=== PATIENT | male | born 1960 | race Caucasian/White ===

== ENCOUNTER 2024-05-03 07:46 | Inpatient (IN) ==
--- NOTE | 2024-03-29 10:37 | PAT Medication Instructions ---
Medication Instructions Date of Service March 29, 2024 Home Medications aspirin 81 mg capsule 81 mg PO QAM atorvastatin 40 mg tablet 80 mg PO HS clopidogrel 75 mg tablet 75 mg PO QAM escitalopram oxalate 10 mg tablet 10 mg PO HS ASK your prescriber and surgeon aspirin 81 mg capsule 81 mg PO QAM clopidogrel 75 mg tablet 75 mg PO QAM Take evening before surgery atorvastatin 40 mg tablet 80 mg PO HS escitalopram oxalate 10 mg tablet 10 mg PO HS Other Notes NOTHING TO EAT OR DRINK AFTER MIDNIGHT. If you have any questions please call us at [phone] or [phone] or [phone] or [phone]
--- NOTE | 2024-04-04 08:20 | Anesthesiology Consultation ---
Date of Service April 04, 2024 Assessment & Plan (1) Encounter for pre-operative examination: - Infectious disease screening: Per assessment on 04/04/24: No known recent infectious disease contacts or current infectious disease symptoms. - ASA/plavix instructions: per surgeon/prescriber (patient reports at PAT visit that he was advised by surgeon to continue perioperatively) - Cardiology visit (03/09/24): "He has a past medical history significant for coronary artery disease status post PCI of the LAD 97, status post coronary artery bypass grafting with MARIE to LAD, NEREIDA to OM, hypertension hyperlipidemia, postoperative atrial fibrillation with rapid ventricular response which is since resolved.. He has severe claudication.. He underwent a peripheral angiogram which showed severe PAD.. He is scheduled to see Dr. Ruff for FIRE CONTROL TECHNICIAN B endarterectomy. Continue Plavix and ASA.. He is doing well from a cardiac standpoint.. Will continue GDMT for PAD and CAD.. He will see vascular surgery for FIRE CONTROL TECHNICIAN B endarterectomy.. Will plan for LUIS FERNANDO intervention following that.. Will assess PVC burden on next Holter in 6 months.. Follow-up in 1 year" Chart Review Chart Review: Acceptable Risk for Surgery (pending evaluation DOS) and Patient seen in Pre Admission Testing Teaching & Discussion Pre-Anesthesia Teaching/Discussion Notes: Instructed NPO after midnight before surgery,except medications with 15 cc of water. Medication instructions provided according to the PAT guidelines. History Surgery Operation Date: 05/03/24 07:30 Proposed Procedures p Right Common Femoral Artery Endarterectomy - Michelet Ruff MD Height/Weight Height: 5 ft 10.5 in Weight: 124.4 kg Allergies Allergy/AdvReac Type Severity Reaction Status Date / Time No Known Allergies Allergy Verified 03/28/24 08:02 Medications Home Medications Medication Instructions Recorded Confirmed Last Taken aspirin 81 mg capsule 81 mg PO QAM 03/28/24 03/28/24 Unknown atorvastatin 40 mg tablet 80 mg PO HS 03/28/24 03/28/24 Unknown clopidogrel 75 mg tablet 75 mg PO QAM 03/28/24 03/28/24 Unknown escitalopram oxalate 10 mg tablet 10 mg PO HS 03/28/24 03/28/24 Unknown Past Medical History Medical History Anxiety CAD (coronary artery disease) Age 38- stent x1 CABG x2 (11/24/23), PH Wei Follows with Dr. Galindo/NEERAJ Henderson cardio Hx of renal calculi Hyperlipidemia Postoperative atrial fibrillation Sleep apnea CPAP (compliant) Exercise / Class Metabolic Activity III < 4 Walking/Shop/Light housework Past Surgical History Surgical History History of total left knee replacement 2015 History of total right knee replacement 2017 Hx of CABG CABG x2 (11/24/23), PH Wei Hx of cardiac cath Age 38- stent x1 10/2023 > CABG x2 Hx of colonoscopy Hx of lithotripsy Hx of tonsillectomy Hx of umbilical hernia repair [place] teeth extracted Past Anesthesia History No Hx of Anesthesia Complications and No Family Hx of Anesthesia Complications History of PONV No Hx of PONV and No Hx of Motion Sickness Social History Smoking Status: Former smoker Do You Dip or Chew Tobacco: No Smoking End Date: Quit 10/2023 Hx Alcohol Use: Yes Alcohol type: beer alcohol intake frequency: a few times a month substance use type: marijuana (None for at least 25 years) Review of Systems Patient denies chest pain, shortness of breath, dyspnea on exertion, fever, chills, cough, wheezing, palpitations. Physical Exam Vital Signs BP 137/77 P 50 TEMP 97.8 SP02 97%RA RESP 18 Physical Full cervical extension range of motion. Full TMJ range of motion. TMD 3 finger breaths Mallampati Score 3 Dentition: intact, + cap (molar) Lungs: clear throughout to auscultation Cardiac: regular rate and rhythm, no murmurs noted Spine: normal Carotid arteries: negative bruit Extremities: no LE edema Lab Results Anesthesia Preop Results Results Anesthesia Widget: WBC 5.68 K/ul (4.8-10.8) 04/04/24 Hgb 15.0 g/dl (14.0-18.0) 04/04/24 Hct 46.7 % (42.0-52.0) 04/04/24 Plt 191 K/uL (130-400) 04/04/24 Na 140 mmol/L (136-145) 04/04/24 K 4.4 mmol/L (3.5-5.1) 04/04/24 Cl 108 mmol/L (98-107) H 04/04/24 CO2 26 mmol/L (21-32) 04/04/24 BUN 18 mg/dl (6-23) 04/04/24 Creat 0.92 mg/dl (0.6-1.4) 04/04/24 Glucose Level 115 mg/dl (70-99(Fasting)) H 04/04/24 PT 12.0 Seconds (9.0-12.0) 04/04/24 PTT 26 Seconds (21-31) 04/04/24 INR 1.1 (0.9-1.1) 04/04/24 Blood Type A Positive 04/04/24 Antibody Screen NEGATIVE 04/04/24 Testing Electrocardiogram Date: 12/29/23 Sinus bradycardia with second-degree AV block, Mobitz type II. 51 bpm. Nonspecific T wave abnormality. Chest X-Ray Date: 04/04/24 FINDINGS: No pneumothorax. No pleural effusions. The lungs are clear. The cardiac silhouette is top normal in size. There are poststernotomy changes. Degenerative changes within the thoracic spine. IMPRESSION: No acute process. Echocardiogram Date: 11/24/23 EF 45-50%. Although no diagnostic RWMA identified, this possibility cannot be completely excluded on the basis of this study. Mild MR. "At this point in time, the patient is status post cardiopulmonary bypass, during with speech CABG was performed. All echocardiographic findings are the same as or similar to prior to the initiation of cardiopulmonary bypass." Cardiac Catheterization Date: 10/28/23 Severe obstructive CAD of the left main, LAD, left circumflex, RCA. Normal LVEDP. *Subsequent CABG x 2 performed.*
[~2024-05-03 07:46] MED LIST: HEPARIN SOD (PORCINE) 1000 UNIT/ML ONE; PHENYLEPHRINE HCL 25 MG/250 ML NSS IV ONE; PROTAMINE SULFATE 10 MG/ML 5 ML VIAL IV ONE
--- NOTE | 2024-05-03 07:48 | History & Physical Report ---
Date of Service May 03, 2024 Assessment & Plan (1) Occlusion of right femoral artery: Plan: Patient has an occlusion of right common femoral artery occlusion. Endarterectomy was recommended. I have discussed the risks options and benefits of the procedure with the patient. The patient understands the risks options and benefits and agrees to the procedure. History of Present Illness Chief Complaint: Right leg claudication Primary Care Provider: NO PCP I had the pleasure of seeing Jean Pierre today for evaluation of his lower extremities. As you know he is a 64-year-old gentleman who has had open heart surgery recently. He has recovered nicely from that. He gives little long history of lower extremity discomfort. He is only able to walk short distances before he has to stop and rest for 4 to 5 minutes and then move on further. It occurs every time he walks. He describes the discomfort as both pain and a jellylike feeling of his lower legs. It become weak. The weakness does recover also in that 5 minutes span. He has had bilateral knee replacements and is in need of a left hip replacement. He claims his legs do not bother him for a long time of gotten progressively worse. He denies any rest pain in his lower extremities and he denies any tissue loss. He did have arteriography of the low er extremity which showed a right common femoral artery occlusion and a significant narrowing of the left common femoral artery. Allergies Allergy/AdvReac Type Severity Reaction Status Date / Time No Known Allergies Allergy Verified 03/28/24 08:02 Home Medications Medication Instructions Recorded Confirmed Type aspirin 81 mg capsule 81 mg PO QAM 03/28/24 03/28/24 History atorvastatin 40 mg tablet 80 mg PO HS 03/28/24 03/28/24 History clopidogrel 75 mg tablet 75 mg PO QAM 03/28/24 03/28/24 History escitalopram oxalate 10 mg tablet 10 mg PO HS 03/28/24 03/28/24 History Past Med/Surg History Problem List (Updated 05/03/24 @ 07:48 by Michelet Ruff MD) Occlusion of right femoral artery Encounter for pre-operative examination Medical History Postoperative atrial fibrillation CAD (coronary artery disease) Age 38- stent x1 CABG x2 (11/24/23), PH Wei Follows with Dr. Galindo/NEERAJ Henderson cardio Hx of renal calculi Sleep apnea CPAP (compliant) Anxiety Hyperlipidemia Surgical History History of total right knee replacement 2016 History of total left knee replacement 2015 Hx of lithotripsy Hx of umbilical hernia repair Hx of colonoscopy Hx of tonsillectomy [place] teeth extracted Hx of CABG CABG x2 (11/24/23), PH Wei Hx of cardiac cath Age 38- stent x1 10/2023 > CABG x2 Social History Smoking Status: Former smoker Smoking End Date: Quit 10/2023; Second Hand Exposure: No; Do You Dip or Chew Tobacco: No; Tobacco Cessation Education Requested by Patient: No Hx Alcohol Use: Yes Alcohol type: beer Preferred Language: Vietnamese Communication Ability: Effective Magazine Keeper Required: No Beliefs That Will Affect Care: None Current Living Situation: Spouse Other Information That Helps Us Care for You: No Feels Safe at Home: Yes Safety Concerns: Feels Safe At This Time Assistive Devices: CPAP and Glasses Review of Systems All systems reviewed & are unremarkable except as noted in HPI & below Physical Exam Physical Exam: On exam he is awake alert and oriented x 3. He is in no apparent distress. His blood pressure is 156/82 on the left and 160/74 on the right. His radials and carotids are +2 bilaterally. Cannot appreciate any bruits. Lungs are clear heart is regular rhythm and abdomen is benign. I cannot feel aortic pulse due to his body habitus. Femorals are +1 on the left and nonpalpable on the right. I cannot appreciate pedal pulses either foot. His capillary refill is markedly decreased on both sides. There is no tissue loss in either lower extremity.
[2024-05-03] MEDS ORDERED: ONDANSETRON INJ 2 MG/ML 2 ML VIAL IV PRN (10:53)
[2024-05-03] MEDS ORDERED: ePHEDrine sulfate 50 MG/ML AMP IV PRN (10:53)
[2024-05-03] MEDS ORDERED: ATROPINE SULFATE 0.1 MG/ML 10ML SYR IV PRN (10:53)
[2024-05-03] MEDS ORDERED: PROMETHAZINE HCL 6.25 MG in SODIUM CHLORIDE 0.9% 50 ML IV PRN (10:53)
[2024-05-03] MEDS ORDERED: fentaNYL citrate PF 100 MCG/2 ML VIAL IV PRN (10:53)
[2024-05-03] MEDS: LACTATED RINGER'S 1,000 ML BAG IV SCH (10:57)
[2024-05-03] MEDS ORDERED: PROPOFOL IV EMULSION 10 MG/ML 20 ML VIAL IV ONE (10:59)
[2024-05-03] MEDS ORDERED: GLYCOPYRROLATE 0.2 MG/ML VIAL ONE (10:59)
[2024-05-03] MEDS ORDERED: MIDAZOLAM HCL 1 MG/ML 2ML VIAL ONE (10:59)
[2024-05-03] MEDS ORDERED: fentaNYL citrate PF 100 MCG/2 ML VIAL ONE ×3 (10:59→13:58)
[2024-05-03] MEDS ORDERED: ONDANSETRON INJ 2 MG/ML 2 ML VIAL ONE (10:59)
[2024-05-03] MEDS ORDERED: DEXAMETHASONE SOD INJ 4 MG/ML VIAL ONE (10:59)
[2024-05-03] MEDS ORDERED: LIDOCAINE 2% 2 ML VIAL/AMP(20MG/ML) INFIL ONE (10:59)
[2024-05-03] MEDS ORDERED: SUGAMMADEX SODIUM 200 MG/2 ML VIAL IV ONE (11:00)
--- NOTE | 2024-05-03 11:29 | History & Physical Bridge Note ---
Date of Service May 03, 2024 History & Physical Bridge Note I have examined the patient, reviewed the History & Physical and in the interval since the performance of the History & Physical I have noted the following changes of clinical significance: no changes noted
[2024-05-03] MEDS: ceFAZolin 3,000 MG/72.5 ML BAG IV SCH (11:59)
[2024-05-03] MEDS ORDERED: PROTAMINE SULFATE 10 MG/ML 5 ML VIAL IV ONE (12:46)
[2024-05-03] MEDS ORDERED: HEPARIN SOD (PORCINE) 1000 UNIT/ML ONE (12:46)
[2024-05-03] MEDS: ceFAZolin 330 MG/ML 1 GM VIAL ONE (12:47)
[2024-05-03] MEDS: BUPIVACAINE 0.5 % 5 MG/1 ML MPF 30ML VIAL ONE (12:47)
[2024-05-03] MEDS: LIDOCAINE 1% LOCAL 20 ML VIAL ONE (12:47)
[2024-05-03] MEDS: GELATIN SPONGE SZ 100 ONE (14:08)
[2024-05-03] MEDS: THROMBIN FOR SOLN 20000 UNIT KIT ONE (14:09)
[2024-05-03] MEDS: HEPARIN SOD (PORCINE) 5,000 UNITS/ML VIAL ONE (14:10)
[2024-05-03] MEDS: PAPAVERINE HCL INJ 30 MG/ML 2 ML VIAL ONE (14:10)
--- NOTE | 2024-05-03 14:17 | Operative Report ---
Post Operative Report Pre & Post Diagnosis Operation Date: 05/03/24 12:00 Pre-Op Diagnosis: Occlusion of right femoral artery Post-Op Diagnosis: Occlusion of right femoral artery I identified the patient and participated in the time-out.: Yes Procedure Operation Date: 05/03/24 12:00 Actual Procedures p Right Common Femoral Artery Endarterectomy with bovine patch(Not Applicable) - Michelet Ruff MD Surgeon Michelet Ruff MD [employer],PAC Estimated Blood Loss 200 Findings Consistent with Post-Op Diagnosis Specimens none Anesthesia Type General Complications none Disposition Accompanied Patient To Recovery: No Disposition: Recovery Room Indications This is a 64-year-old gentleman who was found to have severe claudication of right lower extremity. He was found to have common femoral artery occlusion as well as tight stenoses of the superficial femoral artery origin. Endarterectomy was recommended with patch angioplasty. I have discussed the risks options and benefits of the procedure with the patient. The patient understands the risks options and benefits and agrees to the procedure. Description of Procedure The patient was taken to the operating placed supine position. After the right groin was prepped and draped in a sterile manner a timeout was performed and the patient was identified. Longitudinal incision was made in the right groin. This is carried down to distal common femoral artery was identified. It was extremely calcified at that point. Dissection was carried down along the superficial femoral artery proximally 4 fingerbreadths at which point the artery was soft. The profundofemoral artery was then isolated and tortuous. The origin of the profundofemoral artery was calcified but just distal to that there was a soft artery we then carried the dissection upward. We finally found soft artery with minimal plaque in the distal external iliac above the inguinal ligament. That point the patient was heparinized. After adequate position was accomplished the external iliac, profundofemoral, and superficial femoral arteries were clamped. Longitudinal arteriotomy was started to the distal common femoral artery extending upward and downward to beyond the plaque on the external iliac and superficial femoral artery. Once this was opened and endarterectomy was started in appropriate plane. A large plaque was removed from entirely the incision. It was totally occluding the common femoral artery as well as the profundofemoral artery and superficial femoral artery origins. Once the plaque was removed we used 3 tacking stitches to tack down the breakoff point of the superficial femoral artery. Once this was completed a bovine patch was used to close the arteriotomy. This patch was sewn end-to-end with another patch due to the length of the arteriotomy site. Prior to completing this closure backbleeding and forward bleeding was allowed to occur. The final few sutures were then placed and securely tied. Clamps were removed. There were approximately 5 areas of bleeding between the sutures. These were all repaired with interrupted 5-0 Prolene's. Good Doppler signals were heard in the profundofemoral artery and superficial femoral artery distally. Good pulses are felt in these arteries. Good hemostasis was noted of the wound the wounds were closed in usual fashion using running 2-0 Vicryl suture. Femoral sheath, 3-0 Vicryl's running suture for subcutaneous layer, and byron for the skin. A Prevena dressing was placed on the wound.The patient left the operation room in satisfactory condition and tolerated the procedure well. All needle and sponge counts were correct at the end of the procedure. Leighann Mcconnell Pac assisted due to lack of resident availability and was necessary for positioning, draping, retraction, wound closure deep layers, subcutaneous tissue, and skin closure and was necessary for assisting with the case. I attest to the content of the Intraoperative Record and any orders documented therein. Any exceptions are noted below.
[2024-05-03 15:08] LABS: Basophils # (auto) 0.05 K/uL (0.00-0.20); Basophils % (auto) 0.5 %; Eosinophils # (auto) 0.08 K/uL (0.00-0.50); Eosinophils % (auto) 0.8 %; Hematocrit (blood only) 47.4 % (42.0-52.0); Hemoglobin 15.2 g/dl (14.0-18.0); Immature Granulocytes # (auto) 0.05 K/uL (0.01-0.20); Immature Granulocytes % (auto) 0.5 %; Lymphocytes # (auto) 2.03 K/uL (1.20-3.40); Lymphocytes % (auto) 21.2 %; Mean Corpuscular Hemoglobin 28.5 pg (25.0-34.0); Mean Corpuscular Hgb Conc 32.1 g/dL (32.0-36.0); Mean Corpuscular Volume 88.8 fL (80.0-100.0); Mean Platelet Volume 11.5 fL (9.4-12.4); Monocytes # (auto) 0.23 K/uL (0.11-0.59); Monocytes % (auto) 2.4 %; Neutrophils # (auto) 7.15 K/uL (1.40-6.50); Neutrophils % (auto) 74.6 %; Platelet Count 167 K/uL (130-400); RDW Coefficient of Variation 15.5 % (11.5-14.5); Red Blood Count 5.34 M/uL (4.70-6.10); White Blood Count 9.59 K/ul (4.8-10.8)
--- NOTE | 2024-05-03 15:38 | Anesthesiology Progress Note ---
Date of Service May 03, 2024 Anesthesia Post Procedure Vital Signs Vital Signs: Temp Pulse Pulse Resp BP BP Pulse Ox 05/03/24 15:35 73 14 122/69 93 05/03/24 15:25 73 15 127/65 92 05/03/24 15:15 37.0 C 71 18 141/70 H 92 05/03/24 15:05 74 16 130/80 93 05/03/24 14:55 71 15 133/83 97 05/03/24 14:45 77 10 L 153/80 H 97 05/03/24 14:35 36.0 C L 84 8 L 169/85 H 96 05/03/24 10:21 36.6 C 60 17 153/99 H 157/99 H 95 O2 Del Method O2 Flow Rate 05/03/24 15:35 Nasal Cannula 2 05/03/24 15:25 Room Air 05/03/24 15:15 Room Air 05/03/24 15:05 Room Air 05/03/24 14:55 Oxymask 10 05/03/24 14:45 Oxymask 10 05/03/24 14:35 Oxymask 10 05/03/24 10:21 Room Air Pain Intensity Right Groin: Pain Intensity: 4 Transfer of Care Handoff Completed per policy Notes Mental Status: alert / awake / arousable Patient Amnestic to Procedure: Yes Nausea / Vomiting: adequately controlled Pain: adequately controlled Airway Patency, RR, SpO2: stable & adequate BP & HR: stable & adequate Hydration State: stable & adequate Anesthetic Complications: no major complications apparent
[2024-05-03] MEDS ORDERED: MoRPHine SULFATE 4 MG/ML 1 ML CARP\\VIAL IV PRN (16:02)
[2024-05-03] MEDS: HEPARIN (PORCINE) 1000 UNIT/ML 10 ML (CATH LAB USE ONLY) ONE (16:12)
[2024-05-03] MEDS: ROCURONIUM BROMIDE 10 MG/ML 5 ML VIAL IV ONE (16:12)
[2024-05-03] MEDS: oxyCODONE/ACETAMINOPHEN 5mg/325mg TAB PO PRN (16:33)
[2024-05-03] MEDS: LACTATED RINGER'S 1,000 ML IV SCH (16:33)
[2024-05-03] MEDS: ceFAZolin 2000MG 2,000 MG/15 ML SYR IV SCH (17:14)
[2024-05-03] MEDS: ATORVASTATIN 40 MG TAB PO SCH (20:27)
[2024-05-03] MEDS: ESCITALOPRAM OXALATE 10 MG TAB PO SCH (20:27)
[2024-05-04 07:43] LABS: Basophils # (auto) 0.01 K/uL (0.00-0.20); Basophils % (auto) 0.1 %; Hemoglobin 13.4 g/dl (14.0-18.0); Immature Granulocytes # (auto) 0.05 K/uL (0.01-0.20); Immature Granulocytes % (auto) 0.4 %; Lymphocytes # (auto) 1.32 K/uL (1.20-3.40); Lymphocytes % (auto) 11.1 %; Mean Corpuscular Hemoglobin 28.1 pg (25.0-34.0); Mean Corpuscular Hgb Conc 32.7 g/dL (32.0-36.0); Mean Platelet Volume 11.1 fL (9.4-12.4); Monocytes # (auto) 0.62 K/uL (0.11-0.59); Monocytes % (auto) 5.2 %; Neutrophils # (auto) 9.91 K/uL (1.40-6.50); Neutrophils % (auto) 83.2 %; Platelet Count 172 K/uL (130-400); RDW Coefficient of Variation 15.2 % (11.5-14.5); RDW Standard Deviation 47.8 fL (36.4-46.3); Red Blood Count 4.77 M/uL (4.70-6.10); White Blood Count 11.91 K/ul (4.8-10.8)
[2024-05-04 08:07] LABS: BUN Creatinine Ratio 21.3 (10-20); Calcium 8.4 mg/dl (8.6-10.3); Est GFR (African American) 105.5 ml/min; Potassium 4.4 mmol/L (3.5-5.1)
[2024-05-04] MEDS: CLOPIDOGREL BISULFATE 75 MG TAB PO SCH (09:08)
[2024-05-04] MEDS: ASPIRIN 81 MG ECTAB PO SCH (09:08)
--- NOTE | 2024-05-04 15:09 | Surgery Progress Note ---
Date of Service May 04, 2024 Assessment & Plan (1) Occlusion of right femoral artery: Plan: Doing well post op Will d/c tomorrow Admission and Anticipated Discharge Date Admission Date: May 03, 2024 Subjective No complaints. Ambulated in pimentel. Physical Exam Constitutional: WD/WN, vitals as above Respiratory: normal respiratory effort; no respiratory distress Cardiovascular: Rate/Rhythm: regular rate and regular rhythm Vessels: posterior tibial pulses present (palp on right) and dorsalis pedis pulses present (palp on right) Skin: + incision (prevena in place) Neurologic: CN's II-XI intact bilaterally and moves all extremities Psychiatric: Orientation: alert and oriented x 3 Results & Data Vital Signs (Past 12 Hours) Vital Signs Temp Pulse Resp BP Pulse Ox O2 Del Method O2 Flow Rate 05/04/24 15:00 36.7 C 55 L 16 142/72 H 94 Room Air 05/04/24 08:30 Room Air 05/04/24 07:14 36.5 C 52 L 16 125/66 95 Room Air 05/04/24 03:14 37.1 C 72 18 118/75 96 Nasal Cannula 2
[2024-05-04 15:10] VITALS: O2SAT 94
[2024-05-05 07:14] VITALS: BP 145/83; PULSE 50; RESP 16; TEMP 97.5
--- NOTE | 2024-05-05 10:06 | Surgery Progress Note ---
Date of Service May 05, 2024 Assessment & Plan (1) Occlusion of right femoral artery: Plan: Pt doing well post op. Pain controlled with medication. Reassured pt that sore throat and incisional pain and fatigue are normal for this procedure. SHould improve over next few weeks. Pt discussed with aly Ellington for d/c home today. Will see in office in 2 weeks for staple removal. Admission and Anticipated Discharge Date Admission Date: May 03, 2024 Subjective 64 yo m POD #2 after R femoral artery endarterectomy with bovine patch, seen in f/u today. Pt states feeling more tired and having more pain in R groin since ambulating yesterday. States mild sore throat. No other complaints. Review of Systems Review of Systems: All systems reviewed & are unremarkable except as noted in HPI & below Physical Exam Constitutional: WD/WN, vitals as above Respiratory: normal respiratory effort; no respiratory distress Cardiovascular: Rate/Rhythm: regular rate and regular rhythm Vessels: posterior tibial pulses present (palp on right) and dorsalis pedis pulses present (palp on right) Skin: + incision (prevena in place) Neurologic: CN's II-XI intact bilaterally and moves all extremities Psychiatric: Orientation: alert and oriented x 3 Results & Data Vital Signs (Past 12 Hours) Vital Signs Temp Pulse Resp BP Pulse Ox O2 Del Method 05/05/24 10:00 36.4 C L 50 L 16 145/83 H 94 05/05/24 08:00 Room Air 05/05/24 07:11 36.4 C L 50 L 16 145/83 H 94 CPAP
--- NOTE | 2024-05-05 10:08 | Discharge Summary ---
Date of Service May 05, 2024 Admission HPI Per Admitting Provider I had the pleasure of seeing Jean Pierre today for evaluation of his lower extremities. As you know he is a 64-year-old gentleman who has had open heart surgery recently. He has recovered nicely from that. He gives little long history of lower extremity discomfort. He is only able to walk short distances before he has to stop and rest for 4 to 5 minutes and then move on further. It occurs every time he walks. He describes the discomfort as both pain and a jellylike feeling of his lower legs. It become weak. The weakness does recover also in that 5 minutes span. He has had bilateral knee replacements and is in need of a left hip replacement. He claims his legs do not bother him for a long time of gotten progressively worse. He denies any rest pain in his lower extremities and he denies any tissue loss. He did have arteriography of the lower extremity which showed a right common femoral artery occlusion and a significant narrowing of the left common femoral artery. Admission Exam Per Admitting Provider On exam he is awake alert and oriented x 3. He is in no apparent distress. His blood pressure is 156/82 on the left and 160/74 on the right. His radials and carotids are +2 bilaterally. Cannot appreciate any bruits. Lungs are clear heart is regular rhythm and abdomen is benign. I cannot feel aortic pulse due to his body habitus. Femorals are +1 on the left and nonpalpable on the right. I cannot appreciate pedal pulses either foot. His capillary refill is markedly decreased on both sides. There is no tissue loss in either lower extremity. Principal Diagnosis 1. s/p R common and SFA endarterectomy with bovine patch 2. R femoral artery occlusion Discharge Exam Constitutional WD/WN, vitals as above Respiratory normal respiratory effort; no respiratory distress Cardiovascular Rate/Rhythm: regular rate and regular rhythm Vessels: posterior tibial pulses present (palp on right) and dorsalis pedis pulses present (palp on right) Skin + incision (prevena in place) Neurologic CN's II-XI intact bilaterally and moves all extremities Psychiatric Orientation: alert and oriented x 3 Discharge Data Allergies Allergy/AdvReac Type Severity Reaction Status Date / Time No Known Allergies Allergy Verified 05/03/24 10:40 Procedures Performed Operation Date: 05/03/24 12:00 Actual Procedures p Right Common Femoral Artery Endarterectomy(Not Applicable) - Michelet Ruff MD Hospital Course (1) Occlusion of right femoral artery: Pt doing well post op. Pain controlled with medication. Reassured pt that sore throat and incisional pain and fatigue are normal for this procedure. SHould improve over next few weeks. Pt discussed with aly Ellington for d/c home today. Will see in office in 2 weeks for staple removal. Total Time Total Time Spent Total Time Spent (In Minutes): 0 Discharge Plan Discharge Items Patient Disposition: Home - Self-Care Reason For Visit: PAD Discharge Diagnosis: 1. s/p Right Common and Superficial Femoral Artery Endarterectomy with Bovine Patch 2. R common femoral artery occlusion Activity: Per Instructions section Lifting: No more than 10 pounds Lifting Comment: for 6 weeks Bathing Comment: May shower, no bathing Sexual Activity: When tolerated Exercise/Sports: Gradually increase as tolerated Weightbearing: Full weightbearing Non-emergency contact: Primary Care Provider and Surgeon Call non-emergency contact if: you have any medication questions, your symptoms worsen, your pain is not controlled, your pain is concerning for you, you have a fever, your wound has increased redness, your wound has increased drainage and your wound pain has increased Follow-up/Referrals: Michelet Ruff MD [Physician] - (Follow up with Dr Ruff or Leighann Mcconnell PA-C, in 2 weeks for staple removal) Krista Luciano CRNP [Primary Care Provider] - (Follow up with your PCP within 2 weeks) Diet: Heart Healthy Addtl Attending Provider Instructions: ACTIVITY RECOMMENDATIONS: See Above SPECIAL CARE INSTRUCTIONS: Call your doctor if: * Temperature above 101 degrees * Pain not relieved by pain medicine ordered * There is increased drainage or redness from any incision * You have any unanswered questions or concerns. Pending Studies at Discharge: No Stand-Alone Forms: My [employer], Smoking Cessation Medications and DC Order Prescriptions: New oxycodone-acetaminophen [Percocet] 5-325 mg Tablet 1 - 2 tab PO Q6H PRN (Reason: Pain) Qty: 30 0RF docusate sodium [Colace] 100 mg capsule 100 mg PO BID PRN (Reason: constipation) Qty: 60 0RF Continued atorvastatin 40 mg Tablet 80 mg PO HS clopidogrel 75 mg Tablet 75 mg PO QAM escitalopram oxalate 10 mg Tablet 10 mg PO HS aspirin 81 mg Capsule 81 mg PO QAM Discharge Orders: Discharge Order (Routine); Ordered 05/05/24 Ordered By: Leighann Mcconnell Admission Data Admit Date/Time: 05/03/24 07:48 Attending Provider: Michelet Ruff Admit Provider: Michelet Ruff Primary Care Provider: Krista Luciano Other Interventions: Discharge Summary Assessment (RN) Last Done: 05/05/24 10:00
== END 2024-05-05 12:35 | disposition home or self-care (01) | DRG 254 ==
LOC: ASU 10:01 → 3N 10:02
DX: I70.211 Atherosclerosis of native arteries of extremities with intermittent claudication, right leg; Z79.82 Long term (current) use of aspirin; Z79.02 Long term (current) use of antithrombotics/antiplatelets; Z87.891 Personal history of nicotine dependence; I25.10 Atherosclerotic heart disease of native coronary artery without angina pectoris; Z95.1 Presence of aortocoronary bypass graft; E78.5 Hyperlipidemia, unspecified; Z96.653 Presence of artificial knee joint, bilateral

== ENCOUNTER 2024-07-11 06:29 | Inpatient (IN) ==
--- NOTE | 2024-06-27 13:10 | Anesthesiology Consultation ---
Date of Service June 27, 2024 Assessment & Plan (1) Encounter for pre-operative examination: Chart Review Chart Review: Acceptable Risk for Surgery and Patient NOT seen in Pre Admission Testing -Infectious Disease screening: Per PAT nursing assessment on 06/27/24. No known infectious disease contacts in past 10 days or current infectious disease symptoms. No recent travel outside the country. Right Common Femoral Artery Endarterectomy 05/03/24= Done under GA with Grade 2 view with [place] #2. ETT #7.5. Atraumatic attempt x 1 - Cardiology visit (03/09/24): "He has a past medical history significant for coronary artery disease status post PCI of the LAD 97, status post coronary artery bypass grafting with MARIE to LAD, NEREIDA to OM, hypertension hyperlipidemia, postoperative atrial fibrillation with rapid ventricular response which is since resolved.. He has severe claudication.. He underwent a peripheral angiogram which showed severe PAD.. He is scheduled to see Dr. Ruff for DIRECTOR SELECTION AND ADMINISTRATION endarterectomy. Continue Plavix and ASA.. He is doing well from a cardiac standpoint.. Will continue GDMT for PAD and CAD.. He will see vascular surgery for DIRECTOR SELECTION AND ADMINISTRATION endarterectomy.. Will plan for LUIS FERNANDO intervention following that.. Will assess PVC burden on next Holter in 6 months.. Follow-up in 1 year" History Surgery Operation Date: 07/11/24 08:00 Proposed Procedures p Left Common Femoral Endarterectomy and Right Groin Exploration - Michelet Ruff MD Height/Weight Height: 5 ft 9.5 in Weight: 124.738 kg Allergies Allergy/AdvReac Type Severity Reaction Status Date / Time No Known Allergies Allergy Verified 06/27/24 11:44 Medications Home Medications Medication Instructions Recorded Confirmed Last Taken aspirin 81 mg capsule 81 mg PO QAM 03/28/24 06/27/24 05/02/24 08:00 atorvastatin 40 mg tablet 80 mg PO HS 03/28/24 06/27/24 05/02/24 21:00 clopidogrel 75 mg tablet 75 mg PO QAM 03/28/24 06/27/24 05/02/24 08:00 escitalopram oxalate 10 mg tablet 10 mg PO 2XWK 03/28/24 06/27/24 05/02/24 21:00 Past Medical History Medical History Anxiety CAD (coronary artery disease) 1997- stent x1 CABG x2 (11/24/23), PH [facility] Hematoma right femoral area since 04/2024 s/p right common femoral endarterectomy. pt h as been following with Dr. Ruff and that surgeon is aware. Hx of renal calculi Hyperlipidemia On anticoagulant therapy Postoperative atrial fibrillation pt denies/unaware - states he has been told he "has an extra beat" PVD (peripheral vascular disease) bilateral legs Sleep apnea CPAP (compliant) Past Family History Family History Other No family history of adverse response to anesthesia Past Surgical History Surgical History History of endarterectomy right common femoral endarterectomy (04/2024 - Dr. Ruff) History of total left knee replacement 2015 History of total right knee replacement 2017 Hx of CABG CABG x2 (11/24/23), NEERAJ Carvajal Hx of cardiac cath Age 38- stent x1 at [facility] 10/2023 -> no stents at [facility] 10/2023 > CABG x2 - NEERAJ Carvajal Hx of colonoscopy Hx of heart artery stent (1997) x1 at [facility] in [facility] Hx of lithotripsy Hx of tonsillectomy Hx of umbilical hernia repair [place] teeth extracted Social History Smoking Status: Former smoker Do You Dip or Chew Tobacco: No Smoking End Date: 10/2023 Hx Alcohol Use: Yes Alcohol type: beer alcohol intake frequency: a few times a week Hx Substance Use: Yes substance use type: former substance user, marijuana and crack/cocaine Last Used Substance Other:: none for at least 10 years Lab Results Anesthesia Preop Results Results Anesthesia Widget: WBC 6.32 K/ul (4.8-10.8) 06/26/24 Hgb 15.9 g/dl (14.0-18.0) 06/26/24 Hct 48.9 % (42.0-52.0) 06/26/24 Plt 202 K/uL (130-400) 06/26/24 Na 139 mmol/L (136-145) 06/26/24 K 4.6 mmol/L (3.5-5.1) 06/26/24 Cl 110 mmol/L (98-107) H 06/26/24 CO2 22 mmol/L (21-32) 06/26/24 BUN 13 mg/dl (6-23) 06/26/24 Creat 0.87 mg/dl (0.6-1.4) 06/26/24 Glucose Level 106 mg/dl (70-99(Fasting)) H 06/26/24 TSH 1.616 uIu/ml (0.300-4.500) 06/26/24 HA1c 6.3 % (4.5-5.6) H 06/26/24 Testing Electrocardiogram Date: 12/29/23 Sinus bradycardia with second-degree AV block, Mobitz type II. 51 bpm. Nonspecific T wave abnormality. Chest X-Ray Date: 04/04/24 FINDINGS: No pneumothorax. No pleural effusions. The lungs are clear. The c ardiac silhouette is top normal in size. There are poststernotomy changes. Degenerative changes within the thoracic spine. IMPRESSION: No acute process. Echocardiogram Date: 11/24/23 EF 45-50%. Although no diagnostic RWMA identified, this possibility cannot be completely excluded on the basis of this study. Mild MR. "At this point in time, the patient is status post cardiopulmonary bypass, during with speech CABG was performed. All echocardiographic findings are the same as or similar to prior to the initiation of cardiopulmonary bypass." Cardiac Catheterization Date: 10/28/23 Severe obstructive CAD of the left main, LAD, left circumflex, RCA. Normal LVEDP. *Subsequent CABG x 2 performed.*
[~2024-07-11 06:29] MED LIST changes: -HEPARIN SOD (PORCINE) 1000 UNIT/ML ONE; -PHENYLEPHRINE HCL 25 MG/250 ML NSS IV ONE; -PROTAMINE SULFATE 10 MG/ML 5 ML VIAL IV ONE; +SODIUM CHLORIDE 0.9% 250 ML IV PRN
--- OUTSIDE RECORDS SUMMARY | 2024-07-11 07:14 | External Medical Summary | Continuity of Care Document ---
Author Name Unknown Organization [facility] [address] Address [address] [place] [address] [phone] Care Team Providers Care Ui Software Engineer Name Role Phone Nina Renteria Primary Care Physician [phone] Encounter [id number] Date(s): 07/06/24 - 07/06/24 [facility] [address], [address] [place] [address] [phone] Encounter Diagnosis HTN (hypertension)(Discharge Diagnosis) - 07/06/24 CAD in [place] artery(Discharge Diagnosis) - 07/06/24 HLD (hyperlipidemia)(Discharge Diagnosis) - 07/06/24 Frequent PVCs(Discharge Diagnosis) - 07/06/24 Discharge Disposition: Home or Self Care Attending Physician: MIR Silva Sarah A Allergies, Adverse Reactions, Alerts No Known Allergies Assessment and Plan Extracted from: Title:Cardiology Office Visit Note Author:MIR Marinelli rd, Sarah A Date:07/06/24 Impression: 1. CAD s/p LAD stent in 1997, s/p MARIE and NEREIDA 10/2023 2.Echocardiogram 10/25/2023 -mildly increased LV wall thickening, normal systolic function with ejection fraction of 55%, no wall motion abnormalities, mild dilation of the right ventricle with normal systolic function, RVSP 20 mmHg, atrium mild to moderately dilated, mitral valve with mildly calcified annulus and mild regurgitation 3. PAD s/p femoral endarterectomy on the right, to have another on the left 4. JOSE on CPAP 5. HLD 6. HTN 7.Carotid duplex 10/25/2023 intimal thickening throughout the common carotid arteries with irregular soft and calcified plaques in the bulb, antegrade flow in the vertebral arteries, less than 50% stenosis 8. History of Mobitz II on Topril 9. 13% PVC burden on event monitor 01/10/2024, no afib 10.Post CABG afib Mr. Blackwood's previous records were reviewed and I discussed his history with him thus far and reviewed past studies. He is 8 months out from his bypass and is maintained on DAPT. He notes easy bleeding when he is working on his house and bumps his limbs. At this point, his DAPT is really to be governed by his vascular surgery needs and he is continued on such. He is on statin therapy and his LDL is below 70 on labs from last month. He has never been on an JODIE/ARB despite a long history of CAD. He has high blood pressure in the clinic and this looks like a trend. He does not have a blood pressure cuff at home. I will have him start losartan 25 mg daily with a bmp in 10 days. He will start this after his upcoming surgery. He should maintain a low sodium diet of less than 2,000 mg of sodium per day. He does have frequent PVCs but he does not have heart rate room for metoprolol. His echo in September showed normal LV function. He will return to the clinic in 3 months. 20 minutes spent in chart review, 55 minutes face to face Immunizations Given and Recorded Vaccine Date Status Refusal Reason zoster vaccine, inactivated 01/31/24 Recorded zoster vaccine, inactivated 09/08/23 Recorded SARS-CoV-2 (COVID-19) mRNA-vacc - [id number] 08/25/23 Recorded Medications Aspir 81 oral delayed release tablet Start: 03/23/24 10:03:00 AM EDT, 1 tab, PO, Daily Start Date: 03/23/24 Status: Ordered atorvastatin 80 mg oral tablet take 1 tablet by mouth once daily Start Date: 06/19/24 Status: Ordered clopidogrel 75 mg oral tablet take 1 tablet by mouth daily Start Date: 03/23/24 Status: Ordered escitalopram 10 mg oral tablet take 1 tablet by mouth once daily Start Date: 03/23/24 Status: Ordered losartan 25 mg oral tablet Start: 07/06/24 11:16:00 AM EDT, 1 tab, PO, Daily, Disp# 90 tab, Refills: 3, Pharmacy: [id number] Start Date: 07/06/24 Status: Ordered Mental Status 07/06/24 Barriers to Learning one year None evide nt, Other: wears glasses Mandatory Health Literacy Documentation Yes Health Literacy Communication Barriers N ever Primary Language Moroccan Problem List Condition Confirmation Course Effective Dates Status Health St atus Informant Claudication Confirmed Active PAD (peripheral artery disease) Confirmed Active S/P vascular surgery, follow-up exam Confirmed Active Diagnosis Diagnosis Type Effective Dates Health Status Cl inical Service Informant HLD (hyperlipidemia) Discharge Diagnosis 07/06/24 Non-Specified Frequent PVCs Discharge Diagnosis 07/06/24 Non-Specified HTN (hypertension) Discharge Diagnosis 07/06/24 Non-Specified CAD in [place] artery Discharge Diagnosis 07/06/24 Non-Specified Procedures Procedure Date Related Diagnosis Body Site Status Right OCCUPATIONAL HEALTH PHYSICIAN and SFA endarterec [place] with bovine patch 05/03/24 Completed Vital Signs Most recent to oldest [Reference Range]: 1 Patient Weight 130.1 kg (07/06/24 10:47 AM) Heart Rate 62 bpm (07/06/24 10:47 AM) Blood Pressure 168/92mmHg (07/06/24 10:47 AM) Cuff Pulse Pressure 76 mmHg (07/06/24 10:47 AM) Social History Social History Type Response Smoking Status Former Smoker, quit within 31 days - 1 yr Sex Male Sex Representation Male (finding) Cardiology Outpatient Note * MIR Silva Sarah A: PERFORM, MODIFY, MODIFY Event Display: Cardiology Outpt Note Authored Date: Primary Care Provider BURAK Renteria Jessica A Chief Complaint here to establish care. s/p cagb x 2 in 10/2023. Pt c/o 20 # weight gain since surgery. SOB getting dress, going up steps. hx : PAD with intervention. +jose wears cpap. History of Present Illness Mr. Blackwood presents to establish care for PVD, CAD, and PVCs. He is not having any acute issues today. Previously he was seen by Sharif Carvajal. Prior to 2021 he was followed for 25 years by a ice cutter in [place]. He has a history of CAD since 1996 when he had a stent placed in his LAD for what sounds like unstable angina. He then had no cardiac issues for many years. In September of 2023 he saw Sharif Carvajal with complaints of fatigue. He was referred for catheterization and then to CT surgery for CABG. In October 2023 he had MARIE to the LAD and NEREIDA to the OM. He was noted to have post op afib of which he was not aware. He has a history of frequent PVCs comprising 13% of his total beats. He was treated with metoprololfor a brief time but had bradycardia and was taken off of it. There was a question of Mobitz II on a previous EKG but in review this appears to be SB with PAC. He is status post right femoral endarterectomy and is scheduled to have left femoral endarterectomywith Dr. Ruff on 07/11/2024. He has a history of claudication.The claudication and also hip pain slows him down a bit. He has some shortness of breath but it's really unchanged for many years and it sounds like he's quite active throughout the day with heavy chores like hours of chopping wood and putting up heavy logsiding on his garage on the house he built. He notes that he has gained 20 lbs. No change to his lower extremities, he has had some pitting edema to his right lower extremity since his endarterectomy. No orthopnea. No worsening dyspnea. He admits that he is probably moving less since his leg pain has been bothering him. He does not have chest pain or pressure. No palpitations. He does not feel his PVCs. He uses a cpap every night. Social: He is a former smoker having smoked a pack a day from [id number] just prior to his CABG. Alcohol weekends. 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 Family: father lived to 84 and had a quintuple bypass, paternal grandfather heart attack in his 50s, two paternal uncles in their 50s of heart attacks, mother is still alive at 90, one brother who is 66 who has had cardiac stents, 3 kids who are healthy Review of Systems All other systems reviewed and negative except as discussed in the HPI Physical Exam Vitals & Measurements HR:62(Monitored) BP:168/92 SpO2:98% WT:130.1kg WT:130.100kg(Dosing) Physical Examination General: Alert and oriented, No acute distress. Respiratory: Lungs are clear to auscultation, Respirations are non-labored. Cardiovascular: Normal rate, Regular rhythm, No murmur, pitting edema right lower extremities, no carotid bruits to auscultation bilaterally. Integumentary: Warm, Dry, [place] Neurologic: Alert, Oriented. Cognition and Speech: Speech clear and coherent. Psychiatric: Cooperative, Appropriate mood & affect. Assessment/Plan Impression: 1. CAD s/p LAD stent in 1997, s/p MARIE and NEREIDA 10/2023 2.Echocardiogram 10/25/2023 -mildly increased LV wall thickening, normal systolic function with ejection fraction of 55%, no wall motion abnormalities, mild dilation of the right ventricle with normal systolic function, RVSP 20 mmHg, atrium mild to moderately dilated, mitral valve with mildly calcified annulus and mild regurgitation 3. PAD s/p femoral endarterectomy on the right, to have another on the left 4. JOSE on CPAP 5. HLD 6. HTN 7.Carotid duplex 10/25/2023 intimal thickening throughout the common carotid arteries with irregular soft and calcified plaques in the bulb, antegrade flow in the vertebral arteries, less than 50% stenosis 8. History of Mobitz II on Topril 9. 13% PVC burden on event monitor 01/10/2024, no afib 10.Post CABG afib Mr. Blackwood's previous records were reviewed and I discussed his history with him thus far and reviewed past studies. He is 8 months out from his bypass and is maintained on DAPT. He notes easy bleeding when he is working on his house and bumps his limbs. At this point, his DAPT is really to be governed by his vascular surgery needs and he is continued on such. He is on statin therapy and his LDL is below 70 on labs from last month. He has never been on an JODIE/ARB despite a long history of CAD. He has high blood pressure in the clinic and this looks like a trend. He does not have a blood pressure cuff at home. I will have him start losartan 25 mg daily with a bmp in 10 days. He will start this after his upcoming surgery. He should maintain a low sodium diet of less than 2,000 mg of sodium per day. He does have frequent PVCs but he does not have heart rate room for metoprolol. His echo in September showed normal LV function. He will return to the clinic in 3 months. 20 minutes spent in chart review, 55 minutes face to face Problem List/Past Medical History Ongoing Claudication PAD (peripheral artery disease) S/P vascular surgery, follow-up exam Procedure/Surgical History Right OCCUPATIONAL HEALTH PHYSICIAN and SFA endarterectomy with bovine patch| Service Date: 05/03/2024 Medications aspirin(Aspir 81 oral delayed release tablet), 81 mg= 1 tab, PO, Daily atorvastatin(atorvastatin 80 mg oral tablet) clopidogrel(clopidogrel 75 mg oral tablet) escitalopram(escitalopram 10 mg oral tablet) losartan(losartan 25 mg oral tablet), 25 mg= 1 tab, PO, Daily, 3 refills Allergies NKA Social History Smoking Status Former Smoker, quit within 31 days - 1 yr Electronic Signature on File CC: Nina Renteria PA-C,MPABritta [address] [place] [address] Electronically Reviewed/Signed by: MIR Collins Author Signature Dt/Tm:07/06/2024 12:48 PM [facility] Patient Care team information Care Team Personnel Name: BURAK Mcconnell Lynn Position: Physician Accountant Helper Exempt - Vasc Surg Member Role: Lifetime Relationship Address: [address] [place] [address] Name: BURAK Renteria Jessica A Position: Physician Asst Exmpt - Family Med Member Role: Primary Care Provider Address: [address] [place] [address]"
[2024-07-11] MEDS ORDERED: LIDOCAINE 2% 20 MG/ML 5 ML SYR IV ONE (07:15)
[2024-07-11] MEDS ORDERED: SUGAMMADEX SODIUM 200 MG/2 ML VIAL IV ONE (07:15)
[2024-07-11] MEDS ORDERED: MIDAZOLAM HCL 1 MG/ML 2ML VIAL ONE (07:15)
[2024-07-11] MEDS ORDERED: HEPARIN SOD (PORCINE) 1000 UNIT/ML ONE (07:15)
[2024-07-11] MEDS ORDERED: PROPOFOL IV EMULSION 10 MG/ML 20 ML VIAL IV ONE (07:15)
[2024-07-11] MEDS ORDERED: fentaNYL citrate PF 100 MCG/2 ML VIAL ONE ×3 (07:15→09:22)
[2024-07-11] MEDS ORDERED: ROCURONIUM BROMIDE 10 MG/ML 5 ML VIAL IV ONE ×2 (07:15→10:05)
[2024-07-11] MEDS ORDERED: SUCCINYLCHOLINE CHLORIDE 20 MG/ML 10 ML VIAL IV ONE (07:20)
[2024-07-11 07:23] LABS: INR 1.1 (0.9-1.1); Partial Thromboplastin Ratio 0.9; Partial Thromboplastin Time 25 Seconds (21-31); Prothrombin Time 11.5 Seconds (9.0-12.0)
[2024-07-11] MEDS: LACTATED RINGER'S 1,000 ML IV SCH ×2 (07:32→13:38)
[2024-07-11] MEDS ORDERED: ePHEDrine sulfate 50 MG/ML AMP IV PRN (07:34)
[2024-07-11] MEDS ORDERED: PROMETHAZINE HCL 6.25 MG in SODIUM CHLORIDE 0.9% 50 ML IV PRN (07:34)
[2024-07-11] MEDS ORDERED: NALOXONE HCL 0.4 MG/1 ML VIAL/CARP IV PRN (07:34)
[2024-07-11] MEDS ORDERED: LABETALOL HCL IV 5 MG/ML 20ML IV PRN (07:34)
[2024-07-11] MEDS ORDERED: ONDANSETRON INJ 2 MG/ML 2 ML VIAL IV PRN ×2 (07:34→12:57)
[2024-07-11] MEDS ORDERED: ATROPINE SULFATE 0.1 MG/ML 10ML SYR IV PRN (07:34)
[2024-07-11] MEDS ORDERED: FLUMAZENIL 0.1 MG/1 ML 10 ML VIAL IV PRN (07:34)
--- NOTE | 2024-07-11 07:39 | History & Physical Bridge Note ---
Date of Service July 11, 2024 History & Physical Bridge Note I have examined the patient, reviewed the History & Physical and in the interval since the performance of the History & Physical I have noted the following changes of clinical significance: no changes noted
--- NOTE | 2024-07-11 07:39 | History & Physical Report ---
Date of Service July 11, 2024 Assessment & Plan (1) Femoral artery stenosis, left: Plan: Patient has known history of claudication of bilateral lower extremities and underwent R CFEA recently. He has firm swelling at the distal portion of the incision that gets worse as the day progresses, likely secondary to a lymph leak. He still has symptoms of claudication on his left lower extremity and we have recommended a left common femoral endarterectomy. We discussed this with him and he understands risks versus benefits. He is agreeable to left common femoral endarterectomy and right distal incision lymph leak drainage at the same time of his left lower extremity surgery. Patient was also encouraged to continue follow up with his dye machine operator given his recent CABG and symptoms of fatigue as well as irregular rhythm on exam today. He is trying to transition h is cardiology care to here to make his appointments easier to get to. History of Present Illness Primary Care Provider: MIR Galan Mr. Blackwood is a 64 year old male who presents for follow-up after undergoing a right common femoral artery endarterectomy with bovine patch at [facility]. Patient overall states he is doing well. He did have an area of significant swelling in the distal portion of his incision, which he states gets worse as the day progresses and gets as large and firm as a baseball by the end of the night. He states the swelling improves overnight and is not as bad when he wakes up. However, he has also noticed that during the last one or two weeks, his right lower extremity has also started to swell down to his foot. He denies any fever, chills, drainage, erythema around the site. He denies any pain weakness or discoloration of the lower extremities, feet or toes. As far as his left lower extremity, he does not feel that he has been ambulating enough to see whether he has significant pain but he states he gets fatigue in his left leg and does not have fatigue in his right leg anymore since the surgery. These were his symptoms prior to the right common femoral endarterectomy. When he has the fatigue, he has to stop because he feels his left will give out. Denies numbness, tingling. He states he last saw his dye machine operator in December and they told him he was doing well after his recent CABG in October. He was told he did not have Afib or any other arrhythmia requiring intervention. Allergies Allergy/AdvReac Type Severity Reaction Status Date / Time No Known Allergies Allergy Verified 07/11/24 06:55 Home Medications Medication Instructions Recorded Confirmed Type aspirin 81 mg capsule 81 mg PO QAM 03/28/24 07/11/24 History atorvastatin 40 mg tablet 80 mg PO HS 03/28/24 07/11/24 History clopidogrel 75 mg tablet 75 mg PO QAM 03/28/24 07/11/24 History escitalopram oxalate 10 mg tablet 10 mg PO 2XWK 03/28/24 07/11/24 History (Lexapro) Past Med/Surg History Problem List (Updated 07/11/24 @ 07:38 by Michelet Ruff MD) Femoral artery stenosis, left Encounter for pre-operative examination Status post vascular surgery Occlusion of right femoral artery Medical History On anticoagulant therapy PVD (peripheral vascular disease) bilateral legs Hematoma right femoral area since 04/2024 s/p right common femoral endarterectomy. pt has been following with Dr. Ruff and that surgeon is aware. Postoperative atrial fibrillation pt denies/unaware - states he has been told he "has an extra beat" CAD (coronary artery disease) 1997- stent x1 CABG x2 (11/24/23), NEERAJ Car[facility]ajal [facility] Hx of renal calculi Sleep apnea CPAP (compliant) Anxiety Hyperlipidemia Surgical History History of endarterectomy right common femoral endarterectomy (04/2024 - Dr. Ruff) Hx of heart artery stent (1997) x1 at [facility] in [facility] History of total right knee replacement 2017 History of total left knee replacement 2016 Hx of lithotripsy Hx of umbilical hernia repair Hx of colonoscopy Hx of tonsillectomy [place] teeth extracted Hx of CABG CABG x2 (11/24/23), NEERAJ Carvajal Hx of cardiac cath Age 38- stent x1 at [facility] 10/2023 -> no stents at [facility] 10/2023 > CABG x2 - Wei Family History Other No family history of adverse response to anesthesia Social History Smoking Status: Former smoker Tobacco Type: Cigarettes Smoking End Date: 10/2023; Second Hand Exposure: No; Do You Dip or Chew Tobacco: No; Tobacco Cessation Education Requested by Patient: No Hx Alcohol Use: Yes Alcohol type: beer Hx Substance Use: Yes Last Used Substance Other:: none for at least 10 years Preferred Language: Japanese Communication Ability: Effective Crosstie Inspector Required: No Beliefs That Will Affect Care: None Current Living Situation: Spouse Other Information That Helps Us Care for You: No Feels Safe at Home: Yes Safety Concerns: Feels Safe At This Time Assistive Devices: Cane and CPAP Assistive Devices Comment: cane prn for longer distances Review of Systems All systems reviewed & are unremarkable except as noted in HPI & below Physical Exam Physical Exam: No acute distress. BP 182/92. HR 72. Saturating 97% on room air. He does have an irregular rhythm, confirmed by Doppler in bilateral lower extremities. Lungs are clear. Heart has a RRR. Abdominal exam is benign. The right DP and PT pulses are easily palpable. There is significant edema of the right lower extremity down to the foot. The right groin incision is well healed with no erythema or drainage but the distal portion of the incision has an area of firm swelling. This area is not tender to palpation. The left femoral pulse is not palpable. There is a left PT signal present on Doppler. Unable to find an AT signal. No open wounds on bilateral lower extremities. No areas of discoloration. Results & Data Vital Signs (Past 12 Hours) Vital Signs Temp Pulse Resp BP Pulse Ox O2 Del Method 07/11/24 07:02 36.4 C L 57 L 22 149/97 H 98 Room Air
[2024-07-11] MEDS: ceFAZolin 3000MG 3,000 MG/72.5 ML BAG IV SCH (08:50)
[2024-07-11] MEDS ORDERED: PHENYLEPHRINE HCL 10 MG/ML VIAL ONE (10:05)
[2024-07-11] MEDS: GELATIN SPONGE SZ 100 ONE (10:19)
[2024-07-11] MEDS: ceFAZolin 330 MG/ML 1 GM VIAL ONE (10:34)
[2024-07-11] MEDS: HEPARIN (PORCINE) 1000 UNIT/ML 10 ML (CATH LAB USE ONLY) ONE (10:34)
[2024-07-11] MEDS: SURGICEL ABSORB HEMOSTAT 2IN X 14IN TOP ONE (10:35)
[2024-07-11] MEDS ORDERED: ONDANSETRON INJ 2 MG/ML 2 ML VIAL ONE (10:35)
[2024-07-11] MEDS: THROMBIN FOR SOLN 20000 UNIT KIT ONE (10:36)
--- NOTE | 2024-07-11 10:49 | Operative Report ---
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 Lower Extremities I identified the patient and participated in the time-out.: Yes Procedure Operation Date: 07/11/24 08:00 Actual Procedures p Left Common Femoral Endarterectomy and Right Groin Exploration with excision of hematoma (Bilateral) - Michelet Ruff MD Surgeon Michelet Ruff MD Imaging Specialist Manasa,PAC Estimated Blood Loss 100 Findings Consistent with Post-Op Diagnosis Specimens none Anesthesia Type General Complications none Disposition Accompanied Patient To Recovery: No Disposition: Recovery Room Indications This is a 64-year-old gentleman who recently had a right femoral artery endarterectomy with patch. He is now admitted for significant claudication left lower extremity and a near occlusion of his left common femoral artery. He also has either a seroma or hematoma in the right groin which will be excised. It is causing him discomfort. I have discussed the risks options and benefits of the procedure with the patient. The patient understands the risks options and benefits and agrees to the procedure. Description of Procedure The patient was taken the op room placed spine position. After general anesthesia was accomplished the groins were prepped draped in a sterile manner. A timeout was performed and the patient was identified. A longitudinal groin incision was made in the left groin. This was carried down down through the femoral sheath. The common femoral artery was identified it was isolated from the inguinal ligament down to proximally 10 cm below the origin of the superfici al femoral artery. Profundofemoral arteries also isolated. It was heavily calcified and midportion of the common femoral artery. Patient was heparinized at that time. After adequate position was accomplished the common femoral profundofemoral and distal superficial femoral artery were clamped. Longitudinal arteriotomy was then started in the common femoral artery extending upward and downward to above and below the plaque. This extended downward on the superficial femoral artery for approximately 78 cm. Proximally the arteriotomy was extended up to the inguinal ligament. Large amount of plaque was seen in the common femoral artery with near occlusion in the midportion. Endarterectomy was started in appropriate plane. Plaque peeled off nicely from above. Distally the profundofemoral artery origin was endarterectomized without difficulty. Distally in the superficial femoral artery feathering breakoff point was accomplished just in the proximal portion of the superficial femoral artery. All loose flaps and plaque were then removed under direct vision. Forcefully irrigation was then done which showed no flap seen. The distal breakoff point was then tacked down in 3 spots with 7-0 Prolene sutures. A bovine patch was then brought to the operative field and sewn in place using a 5-0 Prolene suture in usual vascular fashion. Prior to completing the closure backbleeding and forward bleeding was allowed to occur. The final few sutures were then placed and securely tied. Clamps were removed off the profunda and common femoral artery followed by the superficial femoral artery. Excellent Doppler signals were heard in the superficial femoral and profundofemoral artery and common femoral artery. Added hemostasis was then obtained. Wound was then closed with a running 2-0 Vicryl suture for femoral sheath and 3-0 Vicryl suture for the subcutaneous layer and byron for the skin. Incision was then made in the right groin. This was done over the lemon sized mass. Incision was carried down and the mass was isolated. It was dissected free from surrounding tissue. Once this was done it was then completely excised. This evidently was a old hematoma. No active bleeding was seen in the sac. No serous drainage was noted. The sac surrounding the hematoma was also excised. Adequate space was then obtained. The wound was then closed in the usual fashion with a 2-0 Vicryl suture. Deep layers and a 3-0 Vicryl for subcutaneous layer and byron for the skin. Sterile dressings were applied to the wound.The patient left the operation room in satisfactory condition and tolerated the procedure well. All needle and sponge counts were correct at the end of the procedure. Leighann Mcconnell Pac assisted due to lack of resident availability and was necessary for positioning, draping, retraction, wound closure deep layers, subcutaneous tissue, and skin closure and was necessary for assisting with the case. I attest to the content of the Intraoperative Record and any orders documented therein. Any exceptions are noted below.
[2024-07-11] MEDS: fentaNYL citrate PF 100 MCG/2 ML VIAL IV PRN (11:17)
[2024-07-11] MEDS: ERYTHROMYCIN OP OINT 5 MG/GM 3.5 GM TUBE OP SCH (11:45)
[2024-07-11] MEDS: HYDROmorphone INJ 1 MG/ML SYRINGE IV PRN (11:46)
--- NOTE | 2024-07-11 12:50 | Anesthesiology Progress Note ---
Date of Service July 11, 2024 Anesthesia Post Procedure Vital Signs Vital Signs: Temp Pulse Pulse Resp BP Pulse Ox O2 Del Method 07/11/24 12:25 66 18 126/74 92 Room Air 07/11/24 12:15 70 14 120/77 95 Room Air 07/11/24 12:05 71 12 120/85 94 Room Air 07/11/24 11:55 37.3 C 69 13 130/70 93 Room Air 07/11/24 11:45 70 17 142/73 H 93 Room Air 07/11/24 11:35 71 16 148/77 H 95 Oxymask 07/11/24 11:25 68 13 151/83 H 93 Oxymask 07/11/24 11:15 72 12 134/77 95 Oxymask 07/11/24 11:05 65 16 141/90 H 95 Oxymask 07/11/24 10:58 37 C 72 16 149/79 H 96 Oxymask 07/11/24 07:02 36.4 C L 57 L 22 149/97 H 98 Room Air O2 Flow Rate 07/11/24 12:25 07/11/24 12:15 07/11/24 12:05 07/11/24 11:55 07/11/24 11:45 07/11/24 11:35 2 07/11/24 11:25 2 07/11/24 11:15 4 07/11/24 11:05 4 07/11/24 10:58 6 07/11/24 07:02 Pain Intensity Right Groin: Pain Intensity: 2 Bilateral Eye: Pain Intensity: 7 Transfer of Care Handoff Completed per policy Notes Mental Status: alert / awake / arousable Patient Amnestic to Procedure: Yes Nausea / Vomiting: adequately controlled Pain: adequately controlled Airway Patency, RR, SpO2: stable & adequate BP & HR: stable & adequate Hydration State: stable & adequate Anesthetic Complications: no major complications apparent and see Notes below Notes: Pt c/o B/L burning eyes, that are erythematous. I cannot discern any excoriations of the cornea. Pt may have been rubbing his eyes post -op.Pt was prescribed 0.5% erythromycin ophthalmic ointment TID x 5 days to both eyes,w/ 1st application given in PACU. I told pt to call the anesthesia dept. if the problem doesn't resolve in 5 days.
[2024-07-11] MEDS ORDERED: MoRPHine SULFATE 4 MG/ML 1 ML CARP\\VIAL IV PRN (12:57)
[2024-07-11] MEDS ORDERED: SODIUM CHLORIDE 5% OP SOLN 15 ML BTL OP SCH (14:45)
[2024-07-11] MEDS: ESCITALOPRAM OXALATE 10 MG TAB PO SCH (14:49)
--- NOTE | 2024-07-11 15:00 | Communication Note ---
Date of Service: July 11, 2024 @ 1400, I had called and spoken w/ Dr Carbajal (senior information security engineer) regarding pt. c/o B/L eye burning.I explained that the pt. may have been rubbing his eyes while emerging from anesthesia.It's unlikely to sustain B/L corneal abrasions , but possible. I prescribed erythromycin ophthalmic ointment. He stated that may be dry eyes with those symptoms, and suggested artificial tear drops or systane gel eye drops.I conveyed this to pt's , since the hospital doesn't carry systane eye drop gel. She said she would purchase this on her own at [facility]. I called the hospital pharmacist for any other option and she suggested ketoralac eye drops. I conveyed this to Dr Ruff, which he then ordered and prescribed to the pt.
[2024-07-11] MEDS: KETOROLAC 0.5% OP SOLN 5 ML BTL OPB SCH (15:05)
[2024-07-11] MEDS: oxyCODONE/ACETAMINOPHEN 5mg/325mg TAB PO PRN (15:39)
[2024-07-11] MEDS: ceFAZolin 2000MG 2,000 MG/15 ML SYR IV SCH (18:07)
--- NOTE | 2024-07-11 18:23 | Hospitalist Consultation ---
Date of Consultation July 11, 2024 Assessment & Plan (1) Eye pain: Consulted for eye examination for bilateral eye burning following anesthesia. Case was discussed with Dr. Carbajal ophthalmology by anesthesia staff at approximately 2 PM this afternoon, and patient was suspected to have rubbed his eyes while emerging from anesthesia. Bilateral burning quality eye pain after waking up from anesthesia Concern that patient may have rubbed his eyes coming out of anesthesia per note review Fluorescein packet was open with a small drop of sterile saline applied from a flush, and then applied to the right eye. Patient was instructed to blink several times. Sclera was then examined using a Milan lamp. Patient was instructed to gaze in the 12, 3, 6, 9:00 directions, and using manual traction the underside of the superior eyelid was also examined. No corneal abrasion was noted. Following exam eye was flushed with 8 cc of sterile saline from a flush. Procedure was repeated in the left eye. On exam mild injection of the sclera was present bilaterally however no corneal abrasion was appreciated. Following flush of eyes with saline there no residual dye was present Suspect mild scleral irritation, no evidence of corneal abrasion requiring a bandage lens. No evidence of foreign body. May continue already prescribed erythromycin ointment, Toradol eyedrops, and artificial tear lubricating drops. If persistent symptoms will need follow-up with ophthalmology and repeat examination. Patient feels the burning in his eyes is gradually improving since his procedure, although is not yet back to baseline Will reevaluate 07/12 Patient otherwise well and appears hemodynamically stable postprocedure History of Present Illness Attending Physician: Michelet Ruff MD History of Present Illness Jean Pierre is seen at the bedside for postoperative consultation for bilateral eye pain. Notified by nursing staff that patient had bilateral burning right greater than left of his eyes following left common femoral endarterectomy and hematoma excision of the right groin 07/11/2024. Patient is seen at the bedside. He is keeping his eyes closed as he reports th ey burn. He reports he has no vision problems and no eye problems at baseline. Reports that his eyes felt like they were burning after he got out of surgery and woke up. Has been using [id number] artificial teardrops. Patient was prescribed Toradol eyedrops, he has not noticed a significant difference in pain with these, only used once earlier in the afternoon. No fever chills or sweats. No nuchal rigidity. No photosensitivity. No visual field cuts. Denies prior history of issues. Feels the burning is gradually improving since surgery but not completely resolved at time of visit Allergies Allergy/AdvReac Type Severity Reaction Status Date / Time No Known Allergies Allergy Verified 07/11/24 06:55 Home Medications Medication Instructions Recorded Confirmed Type aspirin 81 mg capsule 81 mg PO QAM 03/28/24 07/11/24 History atorvastatin 40 mg tablet 80 mg PO HS 03/28/24 07/11/24 History clopidogrel 75 mg tablet 75 mg PO QAM 03/28/24 07/11/24 History escitalopram oxalate 10 mg tablet 10 mg PO 2XWK 03/28/24 07/11/24 History (Lexapro) Patient History Medical History On anticoagulant therapy PVD (peripheral vascular disease) bilateral legs Hematoma right femoral area since 04/2024 s/p right common femoral endarterectomy. pt has been following with Dr. Ruff and that surgeon is aware. Postoperative atrial fibrillation pt denies/unaware - states he has been told he "has an extra beat" CAD (coronary artery disease) 1997- stent x1 CABG x2 (11/24/23), [facility] Hx of renal calculi Sleep apnea CPAP (compliant) Anxiety Hyperlipidemia Surgical History History of endarterectomy right common femoral endarterectomy (04/2024 - Dr. Ruff) Hx of heart artery stent (1997) x1 at [facility] in [facility] History of total right knee replacement 2017 History of total left knee replacement 2016 Hx of lithotripsy Hx of umbilical hernia repair Hx of colonoscopy Hx of tonsillectomy Brady teeth extracted Hx of CABG CABG x2 (11/24/23), Wei Hx of cardiac cath Age 38- stent x1 at [facility] 10/2023 -> no stents at [facility] 10/2023 > CABG x2 - Wei Family History Other No family history of adverse response to anesthesia Social History Smoking Status: Former smoker Tobacco Type: Cigarettes Smoking End Date: 10/2023; Second Hand Exposure: No; Do You Dip or Chew Tobacco: No; Tobacco Cessation Education Requested by Patient: No Hx Alcohol Use: Yes Alcohol type: beer Hx Substance Use: Yes Last Used Substance Other:: none for at least 10 years Preferred Language: Sami Communication Ability: Effective Track Layer Head Required: No Beliefs That Will Affect Care: None Current Living Situation: Spouse Other Information That Helps Us Care for You: No Feels Safe at Home: Yes Safety Concerns: Feels Safe At This Time Assistive Devices: Cane and CPAP Assistive Devices Comment: cane prn for longer distances Physical Exam Physical Exam: General: A&Ox3. NAD. Cooperative. Eye exam: Scleral injection is present bilaterally. Pupils are equal and reactive to light bilaterally. Patient rest with eyes closed, exam is performed using manual traction of the eyelids with assistance of nursing staff. Fluorescein packet was open with a small drop of sterile saline applied from a flush, and then applied to the right eye. Patient was instructed to blink several times. Sclera was then examined using a Milan lamp. Patient was instructed to gaze in the 12, 3, 6, 9:00 directions, and using manual traction the underside of the superior eyelid was also examined. No corneal abrasion was noted. Following exam eye was flushed with 8 cc of sterile saline from a flush. Procedure was repeated in the left eye. On exam mild injection of the sclera was present bilaterally however no corneal abrasion was appreciated. Results & Data Results & Data Vital Signs (Past 12 Hours) Vital Signs Temp Pulse Pulse Resp BP BP Pulse Ox 07/11/24 16:36 36.8 C 68 16 130/76 94 07/11/24 15:20 36.7 C 66 20 117/76 95 07/11/24 14:18 36.9 C 67 18 135/84 96 07/11/24 13:58 07/11/24 13:58 36.7 C 68 20 152/73 H 95 07/11/24 13:26 36.6 C 65 20 127/81 94 07/11/24 12:55 67 13 140/61 94 07/11/24 12:40 68 13 129/68 94 07/11/24 12:25 66 18 126/74 92 07/11/24 12:15 70 14 120/77 95 07/11/24 12:05 71 12 120/85 94 07/11/24 11:55 37.3 C 69 13 130/70 93 07/11/24 11:45 70 17 142/73 H 93 07/11/24 11:35 71 16 148/77 H 95 07/11/24 11:25 68 13 151/83 H 93 07/11/24 11:15 72 12 134/77 95 07/11/24 11:05 65 16 141/90 H 95 07/11/24 10:58 37 C 72 16 149/79 H 96 07/11/24 07:02 36.4 C L 57 L 22 149/97 H 98 O2 Del Method O2 Flow Rate 07/11/24 16:36 Room Air 07/11/24 15:20 Room Air 07/11/24 14:18 Room Air 07/11/24 13:58 Room Air 07/11/24 13:58 Room Air 07/11/24 13:26 Room Air 07/11/24 12:55 Nasal Cannula 2 07/11/24 12:40 Nasal Cannula 2 07/11/24 12:25 Room Air 07/11/24 12:15 Room Air 07/11/24 12:05 Room Air 07/11/24 11:55 Room Air 07/11/24 11:45 Room Air 07/11/24 11:35 Oxymask 2 07/11/24 11:25 Oxymask 2 07/11/24 11:15 Oxymask 4 07/11/24 11:05 Oxymask 4 07/11/24 10:58 Oxymask 6 07/11/24 07:02 Room Air PG Care Time/CCT Total # of Minutes Spent Total Time Spent with Patient: Total time spent is greater than 50% in coordination of care (as documented) at patient's floor/unit and/or counseling patient: Coding Level of Care Code 36522 IN/OBS CONSULT LVL 3,45M Diagnoses Eye pain H57.10
[2024-07-11] MEDS: ATORVASTATIN 40 MG TAB PO SCH (21:10)
[2024-07-12 07:46] LABS: Basophils # (auto) 0.03 K/uL (0.00-0.20); Basophils % (auto) 0.4 %; Eosinophils # (auto) 0.14 K/uL (0.00-0.50); Eosinophils % (auto) 1.9 %; Hematocrit (blood only) 40.3 % (42.0-52.0); Hemoglobin 13.4 g/dl (14.0-18.0); Immature Granulocytes # (auto) 0.02 K/uL (0.01-0.20); Immature Granulocytes % (auto) 0.3 %; Lymphocytes # (auto) 1.78 K/uL (1.20-3.40); Lymphocytes % (auto) 24.3 %; Mean Corpuscular Hemoglobin 28.5 pg (25.0-34.0); Mean Corpuscular Hgb Conc 33.3 g/dL (32.0-36.0); Mean Corpuscular Volume 85.6 fL (80.0-100.0); Mean Platelet Volume 11.5 fL (9.4-12.4); Monocytes # (auto) 0.63 K/uL (0.11-0.59); Monocytes % (auto) 8.6 %; Neutrophils # (auto) 4.72 K/uL (1.40-6.50); Neutrophils % (auto) 64.5 %; Platelet Count 160 K/uL (130-400); RDW Coefficient of Variation 15.4 % (11.5-14.5); RDW Standard Deviation 48.5 fL (36.4-46.3); Red Blood Count 4.71 M/uL (4.70-6.10); White Blood Count 7.32 K/ul (4.8-10.8)
[2024-07-12] MEDS: CLOPIDOGREL BISULFATE 75 MG TAB PO SCH (08:44)
[2024-07-12] MEDS: ASPIRIN 81 MG ECTAB PO SCH (08:44)
--- NOTE | 2024-07-12 09:12 | Communication Note ---
Date of Service: July 12, 2024 Pt seen @ 0745 this morning,sitting up in bed and eating breakfast. Pt stated burning/eye pain much improved. No issues w/ visual acuity. Will continue w/ artificial tears and ketoralac eye gtts.
--- NOTE | 2024-07-12 12:24 | Hospitalist Progress Note ---
Date of Service July 12, 2024 Assessment & Plan (1) Eye pain: Plan: Consulted for eye examination for bilateral eye burning following anesthesia. Case was discussed with Dr. Carbajal ophthalmology by anesthesia staff at approximately 2 PM 07/11, and patient was suspected to have rubbed his eyes while emerging from anesthesia. Bilateral burning quality eye pain after waking up from anesthesia - has improved - Fluorescein light exam done by Dr. Dukes 07/11 with no findings. continue already prescribed erythromycin ointment, Toradol eyedrops, and artificial tear lubricating drops. If persistent symptoms will need follow-up with ophthalmology and repeat examination. 07/12 pt feels much better and is using his cell phone when I walked in to the room, still with some pain, but manageable. Recommended follow up with his opthomologist after discharge if pain does not resolve in 2-3 days. Patient verbalized understanding. Plan Thank you for allowing us to participate in the care of this patient, please reach out with any questions or concerns. Medicine will sign off. Admission and Anticipated Discharge Date Admission Date: July 11, 2024 Subjective Patient seen lying in bed. States eye pain is much better, he is able to see now. wearing his glasses, does not wear contacts. Review of Systems Review of Systems: All systems reviewed & are unremarkable except as noted in Subjective Physical Exam Physical Exam: General: NAD, vitals as above, sitting on the side of bed HEENT: no pain with EOMI, reports he can see. sclera white, conjunctiva pink Pulm: breathing unlabored extremities: moves all extremities Results & Data Results & Data Vital Signs (Past 12 Hours) Vital Signs Temp Pulse Resp BP BP Pulse Ox O2 Del Method 07/12/24 07:07 98.2 F 52 L 20 119/65 94 Room Air 07/12/24 03:41 98.1 F 64 12 117/61 93 Room Air Laboratory Results CBC and POC glucose reviewed PG Care Time/CCT Total # of Minutes Spent Total Time Spent with Patient: Total time spent is greater than 50% in coordination of care (as documented) at patient's floor/unit and/or counseling patient: Coding Level of Care Code 62981 SUB INP/OBS CARE 2/35MIN Diagnoses Eye pain H57.10
--- NOTE | 2024-07-12 13:08 | Surgery Progress Note ---
Date of Service July 12, 2024 Assessment & Plan (1) Femoral artery stenosis, left: Plan: Patient is postoperative day 1 from a femoral endarterectomy. He is doing well. His pain is improved. He is ambulating without difficulty. Most likely he will be discharged tomorrow. Admission and Anticipated Discharge Date Admission Date: July 11, 2024 Subjective Patient today is complaining of some mild eye pain. He was having severe eye pain yesterday postop. He could not open his eyes last night however today he is opening his eyes and reading and wearing his glasses. He has no complaints of vision disturbance. He has no complaints of lower extremity pain or groin pain. Physical Exam Constitutional: WD/WN, vitals as above Eyes: PERRL and reactive pupils Respiratory: normal respiratory effort; no respiratory distress Cardiovascular: RRR, no murmur, no edema Vessels: posterior tibial pulses present and dorsalis pedis pulses present Skin: + incision (dressing dry and clean) Neurologic: CN's II-XI intact bilaterally and moves all extremities Psychiatric: Orientation: alert and oriented x 3 Results & Data Vital Signs (Past 12 Hours) Vital Signs Temp Pulse Resp BP BP Pulse Ox O2 Del Method 07/12/24 07:07 36.8 C 52 L 20 119/65 94 Room Air 07/12/24 03:41 36.7 C 64 12 117/61 93 Room Air
--- NOTE | 2024-07-13 14:50 | Surgery Progress Note ---
Date of Service July 13, 2024 Assessment & Plan (1) Femoral artery stenosis, left: Plan: Patient is postoperative day 2 from a left femoral endarterectomy and exploration of right groin for hematoma.. He is doing well. He most likely will be ready for discharge tomorrow. Admission and Anticipated Discharge Date Admission Date: July 11, 2024 Subjective This patient is postoperative day 2 from a femoral endarterectomy and exploration of the right groin. He is doing well. He is ambulating without difficulty. He has minimal incisional pain. His eyes have improved and he is not complaining of any eye discomfort today. Physical Exam Constitutional: WD/WN, vitals as above Respiratory: normal respiratory effort; no respiratory distress Cardiovascular: RRR, no murmur, no edema Vessels: posterior tibial pulses present and dorsalis pedis pulses present Extremities: normal capillary refill Skin: + incision (Dry and clean without draina ge) Neurologic: CN's II-XI intact bilaterally and moves all extremities Psychiatric: Orientation: alert and oriented x 3 Results & Data Vital Signs (Past 12 Hours) Vital Signs Temp Pulse Resp BP Pulse Ox O2 Del Method 07/13/24 14:08 36.9 C 54 L 18 115/71 93 Room Air 07/13/24 07:24 36.8 C 54 L 16 130/80 95 Room Air
--- NOTE | 2024-07-13 15:35 | Communication Note ---
Date of Service: July 13, 2024 Pt w/o c/o eye burning/pain. Back to normal. No visual acuity defects.
[2024-07-14 07:15] VITALS: BP 130/82; PULSE 63; RESP 18; TEMP 98.1; O2SAT 96
--- NOTE | 2024-07-14 09:56 | Surgery Progress Note ---
Date of Service July 14, 2024 Assessment & Plan (1) Femoral artery stenosis, left: Plan: Patient is postoperative day 3 from a left femoral endarterectomy and exploration of right groin for hematoma. He is doing well post op. Stable and ok for d/c home today. Will continue erythromycin ointment at d/c for another 3 days to complete treatment. Admission and Anticipated Discharge Date Admission Date: July 11, 2024 Subjective 64 yo m POD #3 after L WRIST CLOSER endart and R groin exploration, seen in f/u today. Pt states pain in incisions only. No pain or problems down his legs or into feet. Eye pain improving daily, no vision changes. No new complaints. Review of Systems Review of Systems: All systems reviewed & are unremarkable except as noted in HPI & below Physical Exam Constitutional: WD/WN, vitals as above Eyes: PERRL and reactive pupils Respiratory: normal respiratory effort; no respiratory distress Cardiovascular: RRR, no murmur, no edema Vessels: posterior tibial pulses present and dorsalis pedis pulses present Extremities: normal capillary refill Skin: + incision (Dry and clean without draina ge) Neurologic: CN's II-XI intact bilaterally and moves all extremities Psychiatric: Orientation: alert and oriented x 3 Results & Data Vital Signs (Past 12 Hours) Vital Signs Temp Pulse Resp BP Pulse Ox O2 Del Method 07/14/24 07:09 36.7 C 63 18 130/82 96 Room Air
--- NOTE | 2024-07-17 14:09 | Discharge Summary ---
Date of Service July 17, 2024 Admission HPI Per Admitting Provider Mr. Blackwood is a 64 year old male who presents for follow-up after undergoing a right common femoral artery endarterectomy with bovine patch at [facility]. Patient overall states he is doing well. He did have an area of significant swelling in the distal portion of his incision, which he states gets worse as the day progresses and gets as large and firm as a baseball by the end of the night. He states the swelling improves overnight and is not as bad when he wakes up. However, he has also noticed that during the last one or two weeks, his right lower extremity has also started to swell down to his foot. He denies any fever, chills, drainage, erythema around the site. He denies any pain weakness or discoloration of the lower extremities, feet or toes. As far as his left lower extremity, he does not feel that he has been ambulating enough to see whether he has significant pain but he states he gets fatigue in his left leg and does not have fatigue in his right leg anymore since the surgery. These were his symptoms prior to the right common femoral endarterectomy. When he has the fatigue, he has to stop because he feels his left will give out. Denies numbness, tingling. 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 He was told he did not have Afib or any other arrhythmia requiring intervention. Admission Exam Per Admitting Provider No acute distress. BP 182/92. HR 72. Saturating 97% on room air. He does have an irregular rhythm, confirmed by Doppler in bilateral lower extremities. Lungs are clear. Heart has a RRR. Abdominal exam is benign. The right DP and PT pulses are easily palpable. There is significant edema of the right lower extremity down to the foot. The right groin incision is well healed with no erythema or drainage but the distal portion of the incision has an area of firm swelling. This area is not tender to palpation. The left femoral pulse is not palpable. There is a left PT signal present on Doppler. Unable to find an AT signal. No open wounds on bilateral lower extremities. No areas of disc oloration. Principal Diagnosis 1. 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 L VEHICLE COST ENGINEER occlusion Discharge Exam Constitutional WD/WN, vitals as above Eyes PERRL and reactive pupils Respiratory normal respiratory effort; no respiratory distress Cardiovascular RRR, no murmur, no edema Vessels: posterior tibial pulses present and dorsalis pedis pulses present Extremities: normal capillary refill Skin + incision (Dry and clean without drainage) Neurologic CN's II-XI intact bilaterally and moves all extremities Psychiatric Orientation: alert and oriented x 3 Discharge Data Allergies Allergy/AdvReac Type Severity Reaction Status Date / Time No Known Allergies Allergy Verified 07/11/24 06:55 Consultations 07/11/24 16:37 Consult Hospitalist Routine Procedures Performed Operation Date: 07/11/24 08:00 Actual Procedures p Left Common Femoral Endarterectomy and Right Groin Exploration(Bilateral) - Michelet Ruff MD Hospital Course (1) Femoral artery stenosis, left: Patient is postoperative day 3 from a left femoral endarterectomy and exploration of right groin for hematoma. He is doing well post op. Stable and ok for d/c home today. Will continue erythromycin ointment at d/c for another 3 days to complete treatment. Total Time Total Time Spent Total Time Spent (In Minutes): 0 Discharge Plan Discharge Items Patient Disposition: Home - Self-Care Reason For Visit: LEFT FEMORAL ARTERY STENOSIS AND RIGHT GROIN SEROM Discharge Diagnosis: 1. s/p L common femoral endarterectomy with bovine patch, and R groin exploration with evacuation of hematoma 2. L common femoral artery stenosis with claudication 3. R groin seroma Activity: Per Instructions section Lifting: No more than 10 pounds Non-emergency contact: Primary Care Provider and Surgeon Call non-emergency contact if: you have any medication questions, your symptoms worsen, your pain is not controlled, your pain is concerning for you, you have a fever, your wound has increased redness and your wound has increased drainage Follow-up/Referrals: Michelet Ruff MD [Physician] - 07/25/24 3:00 pm (Follow up with Dr Ruff or Leighann Mcconnell PA-C in 2-3 weeks for staple removal) Aden Carbajal DO [Physician] - (Follow up with Dr Carbajal if eye pain continues or worsens, or if any vision changes. ) Krista Luciano CRNP [Primary Care Provider] - (Follow up with your PCP within 2 weeks) Diet: Heart Healthy Addtl Attending Provider Instructions: ACTIVITY RECOMMENDATIONS: 1. May shower and dry incisions well. NO tub soaking 2. Activity as tolerated, but no lifting more than 10 lbs x 6 weeks. SPECIAL CARE INSTRUCTIONS: Call your doctor if: * Temperature above 101 degrees * Pain not relieved by pain medicine ordered * There is increased drainage or redness from any incision * You have any unanswered questions or concerns. Addtl Control Analyst Provider Instructions: Hospital Medicine: - continue current eye drops, if pain is not gone in 2-3 days, please follow up with your eye doctor. - call your eye doctor with any acute loss of vision Pending Studies at Discharge: No Stand-Alone Forms: My [employer], Pain - Opioid Pain Management, Smoking Cessation Medications and DC Order Prescriptions: New oxycodone-acetaminophen [Percocet] 5-325 mg Tablet 1 - 2 tab PO Q6H PRN (Reason: pain) Qty: 30 0RF Continued atorvastatin 40 mg Tablet 80 mg PO HS clopidogrel 75 mg Tablet 75 mg PO QAM escitalopram oxalate [Lexapro] 10 mg Tablet 10 mg PO 2XWK aspirin 81 mg Capsule 81 mg PO QAM Discharge Orders: Discharge Order (Routine); Ordered 07/14/24 Ordered By: Leighann Lemus/Other Patient Handouts: Eating Heart-Healthy Foods Admission Data Admit Date/Time: 07/11/24 07:39 Attending Provider: Michelet uRff Admit Provider: Michelet Ruff Primary Care Provider: Krista Luciano Other Interventions: Discharge Summary Assessment (RN) Last Done: 07/14/24 13:00
== END 2024-07-14 13:49 | disposition home or self-care (01) | DRG 253 ==
LOC: ASU 06:29 → 3E 07:39
DX: Z95.5 Presence of coronary angioplasty implant and graft; Z95.1 Presence of aortocoronary bypass graft; Z87.891 Personal history of nicotine dependence; H57.13 Ocular pain, bilateral; E78.5 Hyperlipidemia, unspecified; Z79.82 Long term (current) use of aspirin; Z96.653 Presence of artificial knee joint, bilateral; Y83.8 Other surgical procedures as the cause of abnormal reaction of the patient, or of later complication, without mention of misadventure at the time of the procedure; Z79.02 Long term (current) use of antithrombotics/antiplatelets; Z79.01 Long term (current) use of anticoagulants; M96.842 Postprocedural seroma of a musculoskeletal structure following a musculoskeletal system procedure; I70.213 Atherosclerosis of native arteries of extremities with intermittent claudication, bilateral legs; I25.10 Atherosclerotic heart disease of native coronary artery without angina pectoris; Y92.019 Unspecified place in single-family (private) house as the place of occurrence of the external cause

== ENCOUNTER 2025-05-30 06:35 | Inpatient (IN) ==
--- NOTE | 2025-01-25 11:40 | Anesthesiology Consultation ---
Date of Service January 25, 2025 Assessment & Plan Chart Review Chart Review: Acceptable Risk for Surgery and Patient NOT seen in Pre Admission Testing Consults Requested none History Surgery Operation Date: 02/06/25 12:30 Proposed Procedures p Right to Left Femoral to Femoral Bypass Graft - Michelet Ruff MD Height/Weight Height: 5 ft 10 in Weight: 131.542 kg Allergies Allergy/AdvReac Type Severity Reaction Status Date / Time No Known Allergies Allergy Verified 01/24/25 15:35 Medications Home Medications Medication Instructions Recorded Confirmed Last Taken aspirin 81 mg capsule 81 mg PO QAM 03/28/24 01/24/25 01/22/25 clopidogrel 75 mg tablet 75 mg PO QAM 03/28/24 01/24/25 01/22/25 rosuvastatin 40 mg tablet 40 mg PO HS 01/05/25 01/24/25 01/22/25 coenzyme Q10 100 mg capsule (Co 100 mg PO DAILY 01/15/25 01/24/25 01/22/25 Q-10) losartan 25 mg tablet 25 mg PO HS 01/15/25 01/24/25 01/22/25 tamsulosin 0.4 mg capsule 0.4 mg PO QAM 01/15/25 01/24/25 01/22/25 Past Medical History Medical History (Updated 01/24/25 @ 15:57 by Rebekah Leon RN) 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 Galindo/[facility] Hx of renal calculi Sleep apnea CPAP (compliant) Anxiety Hyperlipidemia Past Family History Family History Other No family history of adverse response to anesthesia Past Surgical History Surgical History History of endarterectomy right and left common femoral endarterectomy with Dr. Ruff Hx of heart artery stent (1997) x1 at [facility] in [facility] History of total right knee replacement 2017 History of total left knee replacement 2016 Hx of lithotripsy Hx of umbilical hernia repair Hx of colonoscopy Hx of tonsillectomy [place] teeth extracted Hx of CABG CABG x2 (11/24/23), PH Wei Hx of cardiac cath Age 38- stent x1 at [facility] 10/2023 -> no stents at [facility] 10/2023 > CABG x2 - NEERAJ Carvajal Social History Smoking Status: Former smoker Smoking cigarettes per day: 11/21/2023 Do You Dip or Chew Tobacco: No Hx Alcohol Use: No Alcohol type: beer alcohol intake frequency: a few times a week Hx Substance Use: No substance use type: does not use Substance Use Type Other:: none for over 10 yrs Last Used Substance Other:: none for at least 10 years
--- NOTE | 2025-05-23 16:32 | Anesthesiology Consultation ---
Date of Service May 23, 2025 Assessment & Plan (1) Encounter for pre-operative examination: Plan - check surgeon ordered CBC with diff, BMP, coags, and type and screen. - cardiology clearance 04/17/25: "...surgery with Dr. Ruff...occasional palps/flutters when resting, no more than usual. No chest pain. SOB with activity...tore hamstring after fall, bruising of the thigh...fell on 03/28...reviewed most recent echocardiogram...fem-fem bypass...can proceed at intermediate risk...risk of cardiac complications is in the range of 4-5%...afib in the postoperative period after his bypass surgery..." - Per search engine optimization analyst on 04/17/25: No known infectious disease contacts, current infectious disease symptoms in past 10 days or COVID positive test result in the past 30 days. Chart Review Chart Review: Acceptable Risk for Surgery and Patient NOT seen in Pre Admission Testing History Surgery Operation Date: 05/30/25 08:00 Proposed Procedures p Femoral to Femoral Artery Bypass - Michelet Ruff MD Height/Weight Height: 5 ft 10 in Weight: 131.542 kg Allergies Allergy/AdvReac Type Severity Reaction Status Date / Time No Known Allergies Allergy Verified 04/17/25 08:56 Medications Home Medications Medication Instructions Recorded Confirmed Last Taken aspirin 81 mg capsule 81 mg PO QAM 03/28/24 04/17/25 01/22/25 clopidogrel 75 mg tablet 75 mg PO QAM 03/28/24 04/17/25 01/22/25 rosuvastatin 40 mg tablet 40 mg PO HS 01/05/25 04/17/25 01/22/25 coenzyme Q10 100 mg capsule (Co 100 mg PO DAILY 01/15/25 04/17/25 01/22/25 Q-10) losartan 25 mg tablet 25 mg PO QAM 01/15/25 04/17/25 01/22/25 tamsulosin 0.4 mg capsule 0.4 mg PO QAM 01/15/25 04/17/25 01/22/25 Past Medical History Medical History Anxiety CAD (coronary artery disease) 1997- stent x1 CABG x2 (11/24/23), PH Wei Follows with Dr. Galindo/[facility] cardio Dilated aortic root Dilated aortic root (4.2cm) per 01/2025 ECHO Fall slipped and fell 03/27/25, treated at the emergency room at [facility] and to follow up with ortho on 04/11/25 - using a cane to ambulate, patient is improving. doing better, no surgery recommended. 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 Mild ascending aorta dilatation Dilated ascending aorta (4.0cm) pre 01/2025 ECHO Postoperative atrial fibrillation s/p CABG PVD (peripheral vascular disease) bilateral legs Sleep apnea CPAP (compliant) Stenosis of iliac artery Arteriogram, Percutaneous Transluminal Angioplasty of Left Iliac Artery, Ultrasound Localization of Bilateral Femoral Artery, > was unable to be stented per pt at 01/05/25 procedure Past Family History Family History Other No family history of adverse response to anesthesia Past Surgical History Surgical History History of endarterectomy right and left common femoral endarterectomy with Dr. Ruff History of total left knee replacement 2016 History of total right knee replacement 2017 Hx of CABG CABG x2 (11/24/23), NEERAJ Carvajal Hx of cardiac cath Age 38- stent x1 at [facility] 10/2023 -> no stents at [facility] 10/2023 > CABG x2 - NEERAJ Carvajal Hx of colonoscopy Hx of heart artery stent (1997) x1 at [facility] in [facility] Hx of lithotripsy Hx of tonsillectomy Hx of umbilical hernia repair [place] teeth extracted Social History Smoking Status: Former smoker Do You Dip or Chew Tobacco: No Smoking End Date: 11/22/2023 Hx Alcohol Use: Yes Alcohol type: beer alcohol intake frequency: a few times a week Hx Substance Use: No substance use type: does not use Substance Use Type Other:: none for over 10 yrs Last Used Substance Other:: none for at least 10 years Testing Electrocardiogram Date: 01/17/25 Normal sinus rhythm with sinus arrhythmia, rate 61 bpm Nonspecific T Wave abnormality Echocardiogram Date: 01/30/25 EF 50% Akinesis of the basal to mid inferior wall Moderate LVH Grade I diastolic dysfunction Mildly dilated RV Right atrial dilation Dilated aortic root 4.2 cm and ascending aorta 4.0 cm Mild mitral regurgitation Mild tricuspid regurgitation Cardiac Catheterization Date: 10/28/23 Left main: 60% stenosis LAD: diffuse 80-90% stenosis, 70% in-stent restenosis Cx: 70-80% stenosis RCA: 100% occlusion Severe obstructive CAD in left main, LAD, LCx and RCA Patient had subsequent CABG Other Testing Lung CT 05/16/25 No suspicious pulmonary nodules seen. Lumbar spine MRI 03/27/25 No fracture or subluxation within the lumbar spine Multilevel degenerative changes Right-sided nephrolithiasis Aorta with runoff CTA 12/04/24 1. Thrombosed left common iliac artery, with good refilling of the left internal and external iliacs. 2. Diffuse atherosclerotic changes of the aorta and the other major arteries, yet with no significant hemodynamic stenosis as described. 3. Anterior abdomen focal area of multiple dense calcifications likely sequel of old granuloma. 4. Fatty liver. 5. Colonic diverticulosis. 6. Lumbasr spondylodegnerative changes. 7. Bilateral marked artifact by the knee joint replacement prosthesis obscuring P1 and P2 segments.
--- NOTE | 2025-05-29 13:31 | History & Physical Report ---
Date of Service May 29, 2025 Assessment & Plan (1) Iliac artery occlusion, left: Plan: Pateint is admitted for a femoral to femoral bypass, right to left with possible right iliac stenting. I have discussed the risks options and benefits of the procedure with the patient. The patient understands the risks options and benefits and agrees to the procedure. History of Present Illness Chief Complaint: Left iliac artery occlusion Primary Care Provider: Nina Renteria PA-C Mr. Blackwood is a middle-age male presents to Dr. Ruff's vascular surgery clinic today for a follow-up appointment after undergoing an aortogram and left iliac angiogram. Unfortunately his left iliac lesion was unable to be crossed with a wire and was not amenable to intervention. He continues with left buttock and thigh claudication at about 20 to 30 feet. He denies any new rest pain, discoloration of the foot, or ulcers. He would like to remain active, and feels that this greatly inhibits his ability to do so. He denies any other new concerns. Allergies Allergy/AdvReac Type Severity Reaction Status Date / Time No Known Allergies Allergy Verified 04/17/25 08:56 Home Medications Medication Instructions Recorded Confirmed Type aspirin 81 mg capsule 81 mg PO QAM 03/28/24 04/17/25 History clopidogrel 75 mg tablet 75 mg PO QAM 03/28/24 04/17/25 History rosuvastatin 40 mg tablet 40 mg PO HS 01/05/25 04/17/25 History coenzyme Q10 100 mg capsule (Co 100 mg PO DAILY 01/15/25 04/17/25 History Q-10) losartan 25 mg tablet 25 mg PO QAM 01/15/25 04/17/25 History tamsulosin 0.4 mg capsule 0.4 mg PO QAM 01/15/25 04/17/25 History Past Med/Surg History Problem List (Updated 05/29/25 @ 13:30 by Michelet Ruff MD) Iliac artery occlusion, left Hip pain, bilateral Left proximal hamstring tendon rupture Trochanteric bursitis, left hip Eye pain Femoral artery stenosis, left Status post vascular surgery Occlusion of right femoral artery Medical History History of Mobitz type II atrioventricular block on Toprol; reason for no BB at this time Mild ascending aorta dilatation Dilated ascending aorta (4.0cm) pre 01/2025 ECHO Dilated aortic root Dilated aortic root (4.2cm) per 01/2025 ECHO Fall slipped and fell 03/27/25, treated at the emergency room at [facility] and to follow up with ortho on 04/11/25 - using a cane to ambulate, patient is improving. doing better, no surgery recommended. 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 Galindo/[facility] cardio Hx of renal calculi Sleep apnea CPAP (compliant) Anxiety Hyperlipidemia Surgical History History of endarterectomy right and left common femoral endarterectomy with Dr. Ruff Hx of heart artery stent (1997) x1 at [facility] in [facility] History of total right knee replacement 2017 History of total left knee replacement 2016 Hx of lithotripsy Hx of umbilical hernia repair Hx of colonoscopy Hx of tonsillectomy [place] teeth extracted Hx of CABG CABG x2 (11/24/23), NEERAJ Carvajal Hx of cardiac cath Age 38- stent x1 at [facility] 10/2023 -> no stents at [facility] 10/2023 > CABG x2 - Wei Family History Other No family history of adverse response to anesthesia Social History Smoking Status: Former smoker Tobacco Type: Cigarettes Smoking End Date: 11/22/2023; Second Hand Exposure: No; Do You Dip or Chew Tobacco: No; Tobacco Cessation Education Requested by Patient: No Hx Alcohol Use: Yes Alcohol type: beer Hx Substance Use: No Preferred Language: Citizen Of [place] Communication Ability: Effective Speeder Frame Tender Required: No Beliefs That Will Affect Care: None Current Living Situation: Spouse Other Information That Helps Us Care for You: No Feels Safe at Home: Yes Safety Concerns: Feels Safe At This Time Assistive Devices: Cane, CPAP and Glasses Assistive Devices Comment: cane PRN Review of Systems All systems reviewed & are unremarkable except as noted in HPI & below Physical Exam Physical Exam: Constitutional: General Patient is an obese but healthy-appearing well-nourished developed middle-aged male in no distress. He is alert and oriented with any focal deficits. His heart is regular, lungs are decreased throughout but clear. Femoral puncture is well-healed. Left femoral pulse is nonpalpable. Toes demonstrate brisk capillary refill and no sign of distal ischemia
[~2025-05-30 06:35] MED LIST changes: +SODIUM CHLORIDE 0.9% 1,000 ML IV SCH; +SODIUM CHLORIDE 0.9% 100 ML IV PRN; -SODIUM CHLORIDE 0.9% 250 ML IV PRN; +ceFAZolin 3000MG 3,000 MG/72.5 ML BAG IV SCH
[2025-05-30 06:57] LABS: Hematocrit (blood only) 48.0 % (42.0-52.0); Hemoglobin 15.9 g/dl (14.0-18.0); Immature Granulocytes # (auto) 0.01 K/uL (0.01-0.20); Immature Granulocytes % (auto) 0.2 %; Mean Corpuscular Hemoglobin 28.5 pg (25.0-34.0); Mean Corpuscular Volume 86.2 fL (80.0-100.0); Platelet Count 197 K/uL (130-400); RDW Standard Deviation 46.2 fL (36.4-46.3); Red Blood Count 5.57 M/uL (4.70-6.10); White Blood Count 6.41 K/ul (4.8-10.8)
[2025-05-30] MEDS ORDERED: ONDANSETRON INJ 2 MG/ML 2 ML VIAL ONE (07:07)
[2025-05-30] MEDS ORDERED: ROCURONIUM BROMIDE 10 MG/ML 5 ML VIAL IV ONE ×6 (07:07→11:49)
[2025-05-30] MEDS ORDERED: DEXAMETHASONE SOD INJ 4 MG/ML VIAL ONE (07:07)
[2025-05-30] MEDS ORDERED: PROPOFOL IV EMULSION 10 MG/ML 20 ML VIAL IV ONE (07:07)
[2025-05-30] MEDS ORDERED: MIDAZOLAM HCL 1 MG/ML 2ML VIAL ONE (07:07)
[2025-05-30] MEDS ORDERED: LIDOCAINE 2% 2 ML VIAL/AMP(20MG/ML) INFIL ONE ×2 (07:07→07:24)
[2025-05-30 07:14] LABS: Anion Gap 6.0 (3-11); Blood Urea Nitrogen 16.0 mg/dl (6-23); Calcium 9.4 mg/dl (8.6-10.3); Carbon Dioxide 25.0 mmol/L (21-32); Chloride 106.0 mmol/L (98-107); Creatinine Clr Calc Pharmacy 118.8 ml/min; Glucose 127.0 mg/dl (70-99(Fasting)); Potassium 4.4 mmol/L (3.5-5.1); Sodium 137.0 mmol/L (136-145)
[2025-05-30] MEDS ORDERED: DOPamine 400MG / 250ML D5W IV ONE (07:14)
[2025-05-30] MEDS ORDERED: PHENYLEPHRINE HCL 10 MG/ML VIAL ONE ×2 (07:15→12:36)
[2025-05-30 07:24] LABS: INR 1.1 (0.9-1.1); Partial Thromboplastin Time 26 Seconds (21-31); Prothrombin Time 11.5 Seconds (9.0-12.0)
[2025-05-30] MEDS ORDERED: KETAMINE HCL 10MG/ML SYR ONE ×2 (07:27→10:05)
[2025-05-30] MEDS: SODIUM CHLORIDE 0.9% 1,000 ML IV SCH (07:35)
--- NOTE | 2025-05-30 07:35 | History & Physical Bridge Note ---
Date of Service May 30, 2025 History & Physical Bridge Note I have examined the patient, reviewed the History & Physical and in the interval since the performance of the History & Physical I have noted the following changes of clinical significance: no changes noted
[2025-05-30] MEDS ORDERED: ACETAMINOPHEN 1000 MG/100 ML IV IV ONE (07:37)
[2025-05-30] MEDS: ceFAZolin 3000MG 3,000 MG/72.5 ML BAG IV SCH (09:15)
[2025-05-30] MEDS ORDERED: LABETALOL HCL IV 5 MG/ML 20ML IV ONE (09:42)
[2025-05-30] MEDS ORDERED: HEPARIN SOD (PORCINE) 1000 UNIT/ML ONE ×2 (11:12→11:58)
[2025-05-30] MEDS ORDERED: PHENYLEPHRINE 100MCG/ML 5ML SYR ONE ×2 (11:52→13:05)
[2025-05-30] MEDS ORDERED: SUGAMMADEX SODIUM 200 MG/2 ML VIAL IV ONE (12:21)
[2025-05-30] MEDS ORDERED: ceFAZolin 330 MG/ML 1 GM VIAL ONE (12:31)
[2025-05-30] MEDS ORDERED: DexMEDEtomidine HCL IV 100 MCG/ML VIAL IV ONE (12:41)
[2025-05-30] MEDS: VISIPAQUE IV PRN (12:50)
[2025-05-30] MEDS: ceFAZolin 3000MG 3,000 MG/72.5 ML BAG IV ONE (12:52)
[2025-05-30] MEDS ORDERED: PROTAMINE SULFATE 10 MG/ML 5 ML VIAL IV ONE (12:56)
--- NOTE | 2025-05-30 13:07 | Post Operative Brief Note ---
Immediate Post Op Note Date of Surgery May 30, 2025 Pre & Post Diagnosis Operation Date: 05/30/25 08:00 Pre-Op Diagnosis: Iliac artery occlusion, left Post-Op Diagnosis: Iliac artery occlusion, left I identified the patient and participated in the time-out.: Yes Procedure Operation Date: 05/30/25 08:00 Actual Procedures p Femoral to Femoral Artery Bypass, Right to Left, HOSIERY MATER Stent R Comm Iliac Arter; Cross femoral bypass right to left - Michelet Ruff MD Surgeon Michelet Ruff MD Casino Dealer MD Demetra RomeroMinarchgeri,PAC Estimated Blood Loss 250 Findings Consistent with Post-Op Diagnosis Drains [place] Catheter (Inserted prior to procedure start by Marcos Dias; 16f, 10cc in balloon) Anesthesia Type General Complications none Disposition Accompanied Patient To Recovery: No Disposition: Recovery Room
[2025-05-30] MEDS: PAPAVERINE HCL INJ 30 MG/ML 2 ML VIAL ONE (13:12)
[2025-05-30] MEDS: FLOSEAL HEMOSTATIC MATRIX 10ML TOP ONE (13:20)
[2025-05-30] MEDS ORDERED: ALBUTEROL HFA 8 GM INHALER INH ONE (13:23)
[2025-05-30] MEDS: ceFAZolin 330 MG/ML 1 GM VIAL ONE (13:38)
[2025-05-30] MEDS: THROMBIN FOR SOLN 20000 UNIT KIT ONE (13:40)
[2025-05-30] MEDS: HEPARIN (PORCINE) 1000 UNIT/ML 10 ML (CATH LAB USE ONLY) ONE (13:41)
[2025-05-30] MEDS: GELATIN SPONGE SZ 100 ONE (13:41)
[2025-05-30] MEDS ORDERED: PHENYLEPHRINE HCL 25 MG/250 ML NSS IV ONE (14:41)
[2025-05-30] MEDS ORDERED: ONDANSETRON INJ 2 MG/ML 2 ML VIAL IV PRN (14:45)
[2025-05-30] MEDS ORDERED: DEXAMETHASONE SOD INJ 4 MG/ML VIAL IV PRN (14:45)
[2025-05-30] MEDS ORDERED: LABETALOL HCL IV 5 MG/ML 20ML IV PRN (14:45)
[2025-05-30] MEDS: [UNRECOGNIZED DRUG - REMARK] IV PRN (14:45)
[2025-05-30] MEDS ORDERED: ATROPINE SULFATE 0.1 MG/ML 10ML SYR IV PRN (14:45)
[2025-05-30] MEDS ORDERED: HYDROmorphone INJ 2 MG/ML SYR/VIAL IV PRN (14:45)
--- NOTE | 2025-05-30 14:54 | Operative Report ---
Post Operative Report Pre & Post Diagnosis Operation Date: 05/30/25 08:00 Pre-Op Diagnosis: Iliac artery occlusion, left Post-Op Diagnosis: Iliac artery occlusion, left I identified the patient and participated in the time-out.: Yes Procedure Operation Date: 05/30/25 08:00 Actual Procedures p Percutaneous Transluminal Angioplasty Stent, Right Common Iliac Artertery; Cross Femoral Bypass Right to Left - Michelet Ruff MD Surgeon Michelet Ruff MD Staff Development Coordinator MD Nick L.Minarchick,PAC Estimated Blood Loss 250 Findings Consistent with Post-Op Diagnosis Pt with resolution of right common iliac stenosis following stenting. On conclusion of right to left femoral femoral bypass, patient had bilateral pt and dp signals. Fluids Please see anesthesia report. Specimens No specimen Drains No drain. 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 Description of Procedure The patient was brought to the operating room and placed on the operating table in supine position. Patient was sedated and intubated and had a Aguila catheter placed by nursing. The abdomen and bilateral groins, and legs were prepped and draped in the usual sterile fashion. The left groin was accessed percutaneously to start and a five south su[place] sheath was placed over a wire into the common femoral artery under ultrasound guidance. We then attempted to recanalize the left common iliac artery. This was ultimately unsuccessful. We when proceeded to the left to right femoral-femoral bypass. A vertical incision was made in the left g roin and carried down with a combination of electrocautery and sharp dissection. A combination of electrocautery, clips and ties was used for control of superficial branches. The femoral sheath was then opened using Metzenbaum scissors and sharp dissection of the common femoral artery, superficial femoral artery, distal external iliac artery and profunda femoris was performed. Notably this was quite difficult and took additional time as this was a redo operative field and extensive scarring was encountered. Direction was then turned to the right groin and the common femoral artery, superficial femoral artery, and distal external iliac artery were exposed in the previously described fashion. Next a tunnel between the groin incisions was developed in a plane above the external oblique muscle within the subcutaneous tissue with blunt dissection. A 8mm ringed PTFE graft was placed within the tunnel. The patient was then systemically heparinized with 8,000 units of IV heparin with redosing of heparin every hour. Next the LEFT NAVIGATION TEACHER and prxomal SFA were clamped. A #11 blade was used to make a vertical arteriotomy which was then extended using Bonilla scissors proximally and distally. After all debris was cleared from the femoral artery posterior wall, an end to side anastomosis between the [place] artery was fashioned using 5-0 Prolene in a running fashion. Prior to completion of the a nastomosis, the profunda femoris, superficial femoral artery and external iliac arteries were unclamped and allowed to be flushed. Thorough irrigation using heparinized saline flush was performed and the anastomosis was completed. Attention was then turned to the right groin. A #11 blade was used to make a vertical arteriotomy which was then extended using Bonilla scissors proximally and distally between the RIGHT NAVIGATION TEACHER and proximal SFA. After all debris was cleared from the femoral artery posterior wall, an end to side anastomosis between the [place] artery was fashioned using 5-0 Prolene in a running fashion. Prior to completion of the anastomosis, the profunda femoris, superficial femoral artery and external iliac arteries were unclamped and allowed to be flushed. Thorough irrigation using heparinized saline flush was performed and the anastomosis was completed. Thrombin-soaked Gelfoam was applied to both groins. The right SFA was then punctured with an 18g needle and an 8 south su[place] sheath was placed over a wire. An aortoiliac angio gram was obtained and demonstrated a flow limiting stenosis at the proximal R LUIS FERNANDO. We then placed an 8x39 VBX stent. This was ballooned with a 14x40 armada proximally and 10x40 distally. Completion angiography demonstrated resolution of the stenosis and attention was returned to the groins. The right SFA sheath was removed and a single 5-prolene suture in a u- stitch configuration was placed. Meticulous hemostasis using electrocautery and thrombin was achieved in both groins. Antibiotic irrigation was used to irrigate the groins. A multilayer closure of the left groin was completed using 2-0 Vicryl to approximate the femoral sheath as well as multiple layers of subcutaneous tissue. A 3-0 Vicryl suture was used to approximate the deep dermis and byron were used to approximate the skin edges. Then, a multilayer closure of the right groin was completed using 2-0 Vicryl to approximate the femoral sheath as well as multiple layers of subcutaneous tissue. A 3-0 Vicryl suture was used to approximate the deep dermis and byron were used to approximate the skin edges. Sterile dressings were applied to both groins. The patient had excellent signals in the both extremities at the end of the case and no change to baseline right lower extremity exam. This concluded the case and the patient was taken to recovery in stable condition. Dr Ruff was present and scrubbed for the entirety of the procedure. I attest to the content of the Intraoperative Record and any orders documented therein. Any exceptions are noted below.
[2025-05-30 15:07] LABS: Hematocrit (blood only) 40.0 % (42.0-52.0); Hemoglobin 13.2 g/dl (14.0-18.0); Immature Granulocytes # (auto) 0.03 K/uL (0.01-0.20); Immature Granulocytes % (auto) 0.3 %; Mean Corpuscular Hemoglobin 28.7 pg (25.0-34.0); Mean Corpuscular Volume 87.0 fL (80.0-100.0); Platelet Count 178 K/uL (130-400); RDW Standard Deviation 47.3 fL (36.4-46.3); Red Blood Count 4.60 M/uL (4.70-6.10); White Blood Count 11.45 K/ul (4.8-10.8)
--- NOTE | 2025-05-30 15:15 | Anesthesiology Progress Note ---
Date of Service May 30, 2025 Anesthesia Post Procedure Vital Signs Vital Signs: Temp Pulse Resp BP BP BP Pulse Ox 05/30/25 15:00 36.8 C 73 14 120/67 112/55 L 95 05/30/25 14:50 74 16 125/66 106/55 L 95 05/30/25 14:40 75 16 87/59 L 87/48 L 95 05/30/25 14:30 79 12 111/63 93/49 L 94 05/30/25 14:23 36.1 C L 79 19 116/48 L 93 05/30/25 06:59 36.5 C 61 20 177/81 H 178/92 H 96 O2 Del Method O2 Flow Rate 05/30/25 15:00 Oxymask 4 05/30/25 14:50 Oxymask 6 05/30/25 14:40 Oxymask 6 05/30/25 14:30 Oxymask 6 05/30/25 14:23 Oxymask 6 05/30/25 06:59 Room Air Transfer of Care Handoff Completed per policy Notes Mental Status: alert / awake / arousable and participated in evaluation Patient Amnestic to Procedure: Yes Nausea / Vomiting: adequately controlled Pain: adequately controlled Airway Patency, RR, SpO2: stable & adequate BP & HR: stable & adequate and see Notes below (currently on phenylephrine 0.5 mcg/kg/min; weean as tolerated) Hydration State: stable & adequate Anesthetic Complications: no major complications apparent, see Notes below and Pt Satisfied with anesthetic care Notes: Doing well, BP stable on marbin gtt; send to ICU for post op monitoring and weaning of vasopressor support
--- NOTE | 2025-05-30 15:47 | Critical Care Consultation ---
Date of Consultation May 30, 2025 Assessment & Plan (1) Iliac artery occlusion, left: (2) PVD (peripheral vascular disease): (3) CAD (coronary artery disease): (4) Sleep apnea: Plan Impression: 65-year-old male with obesity and sleep disordered breathing and peripheral vascular disease brought to the ICU for monitoring post femorofemoral bypass with iliac stenting. He is hemodynamically stable currently. Recommendations: 1. Status post femorofemoral bypass: Management per vascular surgery. Blood pressure goals and anticoagulation per vascular surgery 2. Sleep apnea: Continue home CPAP at night. 3. Postop anemia: Continue to follow clinically. No indication for transfusion currently and no evidence of ongoing blood loss. 4. Pain management per vascular surgery. Defer activity to them. The patient's remaining medical issues have been well addressed by the vascular surgery service. Will continue to follow for blood pressure control in the postoperative setting per protocol. History of Present Illness Attending Physician: Michelet Ruff MD History of Present Illness Asked by vascular surgery to assist in evaluation management this patient's status post femorofemoral bypass. History is obtained from discussion with the patient as well as review of the electronic medical record. The patient is a 65-year-old male with a history of claudication. He underwent aortogram and left iliac angiogram but the left iliac lesion was unable to be crossed with a wire. He had continued to have left buttock and thigh isaac ication and given the symptoms was considered to be an appropriate candidate for a femorofemoral bypass with iliac stenting. Patient was taken to the OR today for the same procedure which was accomplished without difficulty. He returns to the ICU with slightly low blood pressure. Allergies Allergy/AdvReac Type Severity Reaction Status Date / Time No Known Allergies Allergy Verified 05/30/25 06:56 Home Medications Medication Instructions Recorded Confirmed Type aspirin 81 mg capsule 81 mg PO QAM 03/28/24 05/30/25 History clopidogrel 75 mg tablet 75 mg PO QAM 03/28/24 05/30/25 History rosuvastatin 40 mg tablet 40 mg PO HS 01/05/25 05/30/25 History coenzyme Q10 100 mg capsule (Co 100 mg PO DAILY 01/15/25 05/30/25 History Q-10) losartan 25 mg tablet 25 mg PO QAM 01/15/25 05/30/25 History tamsulosin 0.4 mg capsule 0.4 mg PO QAM 01/15/25 05/30/25 History Patient History Medical History History of Mobitz type II atrioventricular block on Toprol; reason for no BB at this time Mild ascending aorta dilatation Dilated ascending aorta (4.0cm) pre 01/2025 ECHO Dilated aortic root Dilated aortic root (4.2cm) per 01/2025 ECHO Fall slipped and fell 03/27/25, treated at the emergency room at [facility] and to follow up with ortho on 04/11/25 - using a cane to ambulate, patient is improving. doing better, no surgery recommended. 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 Galindo/[facility] cardio Hx of renal calculi Sleep apnea CPAP (compliant) Anxiety Hyperlipidemia Surgical History History of endarterectomy right and left common femoral endarterectomy with Dr. Ruff Hx of heart artery stent (1997) x1 at [facility] in [facility] History of total right knee replacement 2017 History of total left knee replacement 2015 Hx of lithotripsy Hx of umbilical hernia repair Hx of colonoscopy Hx of tonsillectomy [place] teeth extracted Hx of CABG CABG x2 (11/24/23), Wei Hx of cardiac cath Age 38- stent x1 at [facility] 10/2023 -> no stents at [facility] 10/2023 > CABG x2 - Wei Family History Other No family history of adverse response to anesthesia Social History Smoking Status: Former smoker Tobacco Type: Cigarettes Smoking End Date: 11/22/2023; Second Hand Exposure: No; Do You Dip or Chew Tobacco: No; Tobacco Cessation Education Requested by Patient: No Hx Alcohol Use: Yes Alcohol type: beer Hx Substance Use: No Preferred Language: Lithuanian Communication Ability: Effective Manager Cable Required: No Beliefs That Will Affect Care: None Current Living Situation: Spouse Other Information That Helps Us Care for You: No Feels Safe at Home: Yes Safety Concerns: Feels Safe At This Time Assistive Devices: Cane, CPAP and Glasses Assistive Devices Comment: cane PRN Review of Systems Review of Systems: Please refer to admission H&P. No additions or deletions Physical Exam Constitutional: WD/WN, vitals as above Eyes: PERRL and reactive pupils Respiratory: normal respiratory effort; no respiratory distress Cardiovascular: RRR, no murmur, no edema Vessels: posterior tibial pulses present and dorsalis pedis pulses present Extremities: normal capillary refill Skin: + incision (Dry and clean without draina ge) Neurologic: CN's II-XI intact bilaterally and moves all extremities Psychiatric: Orientation: alert and oriented x 3 Results & Data Results & Data Vital Signs (Past 12 Hours) Vital Signs Temp Pulse Resp BP BP BP Pulse Ox 05/30/25 15:15 73 18 114/67 111/53 L 97 05/30/25 15:00 36.8 C 73 14 120/67 112/55 L 95 05/30/25 14:50 74 16 125/66 106/55 L 95 05/30/25 14:40 75 16 87/59 L 87/48 L 95 05/30/25 14:30 79 12 111/63 93/49 L 94 05/30/25 14:23 36.1 C L 79 19 116/48 L 93 05/30/25 06:59 36.5 C 61 20 177/81 H 178/92 H 96 O2 Del Method O2 Flow Rate 05/30/25 15:15 Oxymask 4 05/30/25 15:00 Oxymask 4 05/30/25 14:50 Oxymask 6 05/30/25 14:40 Oxymask 6 05/30/25 14:30 Oxymask 6 05/30/25 14:23 Oxymask 6 05/30/25 06:59 Room Air Critical Care Results & Data Vital Signs (Past 12 Hours) Vital Signs Temp Pulse Resp BP BP BP Pulse Ox 05/30/25 15:15 73 18 114/67 111/53 L 97 05/30/25 15:00 36.8 C 73 14 120/67 112/55 L 95 05/30/25 14:50 74 16 125/66 106/55 L 95 05/30/25 14:40 75 16 87/59 L 87/48 L 95 05/30/25 14:30 79 12 111/63 93/49 L 94 05/30/25 14:23 36.1 C L 79 19 116/48 L 93 05/30/25 06:59 36.5 C 61 20 177/81 H 178/92 H 96 O2 Del Method O2 Flow Rate 05/30/25 15:15 Oxymask 4 05/30/25 15:00 Oxymask 4 05/30/25 14:50 Oxymask 6 05/30/25 14:40 Oxymask 6 05/30/25 14:30 Oxymask 6 05/30/25 14:23 Oxymask 6 05/30/25 06:59 Room Air Lab & Micro Results (Past 24 Hours) RBC 4.60 M/uL (4.70-6.10) L 05/30/25 WBC 11.45 K/ul (4.8-10.8) H 05/30/25 Hgb 13.2 g/dl (14.0-18.0) L 05/30/25 Hct 40.0 % (42.0-52.0) L 05/30/25 MCV 87.0 fL (80.0-100.0) 05/30/25 MCH 28.7 pg (25.0-34.0) 05/30/25 MCHC 33.0 g/dL (32.0-36.0) 05/30/25 RDW Standard Deviation 47.3 fL (36.4-46.3) H 05/30/25 RDW Coefficient of Variation 14.8 % (11.5-14.5) H 05/30/25 Plt Count 178 K/uL (130-400) 05/30/25 MPV 10.6 fL (9.4-12.4) 05/30/25 Neutrophils (%) (Auto) 89.9 % 05/30/25 Lymphocytes (%) (Auto) 7.7 % 05/30/25 Monocytes # (Auto) 0.19 K/uL (0.11-0.59) 05/30/25 Eosinophils # (Auto) 0.01 K/uL (0.00-0.50) 05/30/25 Immature Granulocyte % (Auto) 0.3 % 05/30/25 Neutrophils # (Auto) 10.30 K/uL (1.40-6.50) H 05/30/25 Lymphocytes # (Auto) 0.88 K/uL (1.20-3.40) L 05/30/25 Monocytes # (Auto) 0.19 K/uL (0.11-0.59) 05/30/25 Eosinophils # (Auto) 0.01 K/uL (0.00-0.50) 05/30/25 Basophils # (Auto) 0.04 K/uL (0.00-0.20) 05/30/25 Immature Granulocyte # (Auto) 0.03 K/uL (0.01-0.20) 5 Na 137 mmol/L (136-145) 05/30/25 K 4.4 mmol/L (3.5-5.1) 05/30/25 Cl 106 mmol/L (98-107) 05/30/25 CO2 25 mmol/L (21-32) 05/30/25 Anion Gap 6 (3-11) 05/30/25 BUN 16 mg/dl (6-23) 05/30/25 Creatinine 0.88 mg/dl (0.6-1.4) 05/30/25 BUN/Creatinine Ratio 18.2 (10-20) 05/30/25 Glu 127 mg/dl (70-99(Fasting)) H 05/30/25 Ca 9.4 mg/dl (8.6-10.3) 05/30/25 Calcium Level 9.4 mg/dl (8.6-10.3) 05/30/25 06:40 Prothromb Time International Ratio 1.1 (0.9-1.1) 05/30/25 06:4 0 I & O Totals 24 Hours 05/29/25 05/30/25 05/31/25 06:59 06:59 06:59 Intake Total 3145.0 / 3145.0 Output Total 1100 / 1100 Balance 2045.0 / 2045.0 Cumulative 01/18/25 10:15 thru 05/30/25 15:44 Intake Total 3145.0 Output Total 1100 Balance 2045.0 RT Ventilator Mngmt (Last Documented) Ventilator Ordered Settings Respiratory Rate 18 05/30/25 15:15 Ventilator - PT Measurements Respiratory Rate 18 Coding Level of Care Code 20194 INT INP/OBS CARE 2/55MIN Diagnoses Iliac artery occlusion, left I74.5 PVD (peripheral vascular disease) I73.9 CAD (coronary artery disease) I25.10 Sleep apnea G47.30
[2025-05-30] MEDS: SODIUM CHLORIDE 0.9% 500 ML IV SCH (16:28)
[2025-05-30] MEDS: MoRPHine SULFATE 4 MG/ML 1 ML CARP\\VIAL IV PRN (16:28)
[2025-05-30] MEDS: ROSUVASTATIN CALCIUM 20 MG TAB PO SCH (21:05)
[2025-05-31 05:08] LABS: Hematocrit (blood only) 35.6 % (42.0-52.0); Hemoglobin 11.8 g/dl (14.0-18.0); Immature Granulocytes # (auto) 0.03 K/uL (0.01-0.20); Immature Granulocytes % (auto) 0.3 %; Mean Corpuscular Hemoglobin 28.8 pg (25.0-34.0); Mean Corpuscular Volume 86.8 fL (80.0-100.0); Platelet Count 169 K/uL (130-400); RDW Standard Deviation 47.9 fL (36.4-46.3); Red Blood Count 4.10 M/uL (4.70-6.10); White Blood Count 9.80 K/ul (4.8-10.8)
[2025-05-31 05:23] LABS: Anion Gap 7.0 (3-11); Blood Urea Nitrogen 20.0 mg/dl (6-23); Calcium 8.1 mg/dl (8.6-10.3); Carbon Dioxide 24.0 mmol/L (21-32); Chloride 105.0 mmol/L (98-107); Creatinine Clr Calc Pharmacy 111.3 ml/min; Glucose 127.0 mg/dl (70-99(Fasting)); Potassium 4.1 mmol/L (3.5-5.1); Sodium 136.0 mmol/L (136-145)
--- NOTE | 2025-05-31 07:51 | Critical Care Progress Note ---
Date of Service May 31, 2025 Assessment & Plan (1) Iliac artery occlusion, left: (2) PVD (peripheral vascular disease): (3) CAD (coronary artery disease): (4) Sleep apnea: Plan Impression: 65-year-old male with obesity and sleep disordered breathing and peripheral vascular disease brought to the ICU for monitoring post femorofemoral bypass with iliac stenting. He is hemodynamically stable currently. He is doing well postoperative day 1 Recommendations: 1. Status post femorofemoral bypass: Postop day 1. Management per vascular surgery. Blood pressure goals and anticoagulation per vascular surgery. Discontinue arterial line. Will discontinue Aguila catheter and initiate activity orders per vascular surgery 2. Sleep apnea: Continue home CPAP at night. 3. Postop anemia: Slight drop in hemoglobin today but no evidence of ongoing blood loss and no indication for transfusion or interval imaging. 4. Pain management per vascular surgery. Defer activity to them. Patient's critical care issues are resolved. Critical care services will sign off. Disposition per vascular surgery. Feel free to contact us with questions or concerns Admission and Anticipated Discharge Date Admission Date: May 30, 2025 Subjective Patient seen and examined. EMR reviewed. Discussed with overnight critical care ELISHA as well as with bedside critical care nurse and on multidisciplinary rounds. Patient complains of diffuse total body discomfort secondary to lying in bed. He having issues with his urinary catheter causing discomfort and would like it removed. Has been hemodynamically stable. He is at been off vasopressor agents. He is tolerating a diet. No abdominal pain. Review of Systems Review of Systems: All systems reviewed & are unremarkable except as noted in Subjective Physical Exam Constitutional: WD/WN, vitals as above Eyes: PERRL and reactive pupils Respiratory: normal respiratory effort; no respiratory distress Cardiovascular: RRR, no murmur, no edema Vessels: posterior tibial pulses present and dorsalis pedis pulses present Extremities: normal capillary refill Skin: + incision (Dry and clean without draina ge) Neurologic: CN's II-XI intact bilaterally and moves all extremities Psychiatric: Orientation: alert and oriented x 3 Results & Data Results & Data Vital Signs (Past 12 Hours) Vital Signs Pulse Resp BP Pulse Ox Pulse Ox O2 Del Method O2 Del Method 05/31/25 07:38 Room Air 05/31/25 07:37 93 Room Air 05/31/25 07:18 76 05/31/25 06:12 76 14 93 Room Air 05/31/25 06:00 120/67 05/31/25 05:51 73 15 93 Room Air 05/31/25 05:39 76 14 91 Room Air 05/31/25 05:00 115/72 05/31/25 04:39 73 15 92 Room Air 05/31/25 04:00 114/89 05/31/25 04:00 72 20 93 CPAP 05/31/25 04:00 73 116/58 L 05/31/25 03:51 72 20 94 CPAP 05/31/25 03:33 73 19 94 CPAP 05/31/25 03:15 71 16 93 CPAP 05/31/25 03:00 66 24 91 CPAP 05/31/25 03:00 121/64 05/31/25 02:54 71 19 91 CPAP 05/31/25 02:00 96/74 L 05/31/25 01:48 71 17 92 CPAP 05/31/25 01:00 114/83 05/31/25 00:57 74 19 91 CPAP 05/31/25 00:45 73 18 94 CPAP 05/31/25 00:33 74 15 90 CPAP 05/31/25 00:15 74 21 90 CPAP 05/31/25 00:09 75 15 90 CPAP 05/31/25 00:00 136/82 05/31/25 00:00 77 116/81 05/31/25 00:00 74 05/30/25 23:59 92 CPAP 05/30/25 23:45 76 21 90 CPAP 05/30/25 23:33 75 21 92 CPAP 05/30/25 23:15 76 17 92 CPAP 05/30/25 23:00 76 16 95 CPAP 05/30/25 23:00 78 13 95 Nasal Cannula 05/30/25 22:48 76 12 91 Nasal Cannula 05/30/25 22:33 78 21 94 Nasal Cannula 05/30/25 22:06 76 15 95 Nasal Cannula 05/30/25 22:01 125/63 05/30/25 21:36 74 14 95 Nasal Cannula 05/30/25 21:30 76 18 94 Nasal Cannula 05/30/25 21:24 79 20 94 Nasal Cannula 05/30/25 21:03 79 18 96 Nasal Cannula 05/30/25 21:01 74 20 107/48 L 96 Nasal Cannula 05/30/25 21:00 85 20 95 Nasal Cannula 05/30/25 20:45 78 21 95 Nasal Cannula 05/30/25 20:24 78 16 94 Nasal Cannula 05/30/25 20:06 77 19 96 Nasal Cannula 05/30/25 20:00 79 114/53 L 05/30/25 19:54 Nasal Cannula O2 Flow Rate 05/31/25 07:38 05/31/25 07:37 05/31/25 07:18 05/31/25 06:12 05/31/25 06:00 05/31/25 05:51 05/31/25 05:39 05/31/25 05:00 05/31/25 04:39 05/31/25 04:00 05/31/25 04:00 05/31/25 04:00 05/31/25 03:51 05/31/25 03:33 05/31/25 03:15 05/31/25 03:00 05/31/25 03:00 05/31/25 02:54 05/31/25 02:00 05/31/25 01:48 05/31/25 01:00 05/31/25 00:57 05/31/25 00:45 05/31/25 00:33 05/31/25 00:15 05/31/25 00:09 05/31/25 00:00 05/31/25 00:00 05/31/25 00:00 05/30/25 23:59 05/30/25 23:45 05/30/25 23:33 05/30/25 23:15 05/30/25 23:00 05/30/25 23:00 4 05/30/25 22:48 4 05/30/25 22:33 4 05/30/25 22:06 4 05/30/25 22:01 05/30/25 21:36 4 05/30/25 21:30 4 05/30/25 21:24 4 05/30/25 21:03 4 05/30/25 21:01 4 05/30/25 21:00 4 05/30/25 20:45 4 05/30/25 20:24 4 05/30/25 20:06 4 05/30/25 20:00 05/30/25 19:54 4 Critical Care Results & Data Vital Signs (Past 12 Hours) Vital Signs Pulse Resp BP Pulse Ox Pulse Ox O2 Del Method O2 Del Method 05/31/25 07:38 Room Air 05/31/25 07:37 93 Room Air 05/31/25 07:18 76 05/31/25 06:12 76 14 93 Room Air 05/31/25 06:00 120/67 05/31/25 05:51 73 15 93 Room Air 05/31/25 05:39 76 14 91 Room Air 05/31/25 05:00 115/72 05/31/25 04:39 73 15 92 Room Air 05/31/25 04:00 114/89 05/31/25 04:00 72 20 93 CPAP 05/31/25 04:00 73 116/58 L 05/31/25 03:51 72 20 94 CPAP 05/31/25 03:33 73 19 94 CPAP 05/31/25 03:15 71 16 93 CPAP 05/31/25 03:00 66 24 91 CPAP 05/31/25 03:00 121/64 05/31/25 02:54 71 19 91 CPAP 05/31/25 02:00 96/74 L 05/31/25 01:48 71 17 92 CPAP 05/31/25 01:00 114/83 05/31/25 00:57 74 19 91 CPAP 05/31/25 00:45 73 18 94 CPAP 05/31/25 00:33 74 15 90 CPAP 05/31/25 00:15 74 21 90 CPAP 05/31/25 00:09 75 15 90 CPAP 05/31/25 00:00 136/82 05/31/25 00:00 77 116/81 05/31/25 00:00 74 05/30/25 23:59 92 CPAP 05/30/25 23:45 76 21 90 CPAP 05/30/25 23:33 75 21 92 CPAP 05/30/25 23:15 76 17 92 CPAP 05/30/25 23:00 76 16 95 CPAP 05/30/25 23:00 78 13 95 Nasal Cannula 05/30/25 22:48 76 12 91 Nasal Cannula 05/30/25 22:33 78 21 94 Nasal Cannula 05/30/25 22:06 76 15 95 Nasal Cannula 05/30/25 22:01 125/63 05/30/25 21:36 74 14 95 Nasal Cannula 05/30/25 21:30 76 18 94 Nasal Cannula 05/30/25 21:24 79 20 94 Nasal Cannula 05/30/25 21:03 79 18 96 Nasal Cannula 05/30/25 21:01 74 20 107/48 L 96 Nasal Cannula 05/30/25 21:00 85 20 95 Nasal Cannula 05/30/25 20:45 78 21 95 Nasal Cannula 05/30/25 20:24 78 16 94 Nasal Cannula 05/30/25 20:06 77 19 96 Nasal Cannula 05/30/25 20:00 79 114/53 L 05/30/25 19:54 Nasal Cannula O2 Flow Rate 05/31/25 07:38 05/31/25 07:37 05/31/25 07:18 05/31/25 06:12 05/31/25 06:00 05/31/25 05:51 05/31/25 05:39 05/31/25 05:00 05/31/25 04:39 05/31/25 04:00 05/31/25 04:00 05/31/25 04:00 05/31/25 03:51 05/31/25 03:33 05/31/25 03:15 05/31/25 03:00 05/31/25 03:00 05/31/25 02:54 05/31/25 02:00 05/31/25 01:48 05/31/25 01:00 05/31/25 00:57 05/31/25 00:45 05/31/25 00:33 05/31/25 00:15 05/31/25 00:09 05/31/25 00:00 05/31/25 00:00 05/31/25 00:00 05/30/25 23:59 05/30/25 23:45 05/30/25 23:33 05/30/25 23:15 05/30/25 23:00 05/30/25 23:00 4 05/30/25 22:48 4 05/30/25 22:33 4 05/30/25 22:06 4 05/30/25 22:01 05/30/25 21:36 4 05/30/25 21:30 4 05/30/25 21:24 4 05/30/25 21:03 4 05/30/25 21:01 4 05/30/25 21:00 4 05/30/25 20:45 4 05/30/25 20:24 4 05/30/25 20:06 4 05/30/25 20:00 05/30/25 19:54 4 Lab & Micro Results (Past 24 Hours) RBC 4.10 M/uL (4.70-6.10) L 05/31/25 WBC 9.80 K/ul (4.8-10.8) 05/31/25 Hgb 11.8 g/dl (14.0-18.0) L 05/31/25 Hct 35.6 % (42.0-52.0) L 05/31/25 MCV 86.8 fL (80.0-100.0) 05/31/25 MCH 28.8 pg (25.0-34.0) 05/31/25 MCHC 33.1 g/dL (32.0-36.0) 05/31/25 RDW Standard Deviation 47.9 fL (36.4-46.3) H 05/31/25 RDW Coefficient of Variation 15.0 % (11.5-14.5) H 05/31/25 Plt Count 169 K/uL (130-400) 05/31/25 MPV 10.8 fL (9.4-12.4) 05/31/25 Neutrophils (%) (Auto) 74.2 % 05/31/25 Lymphocytes (%) (Auto) 17.4 % 05/31/25 Monocytes # (Auto) 0.75 K/uL (0.11-0.59) H 05/31/25 Eosinophils # (Auto) 0.02 K/uL (0.00-0.50) 05/31/25 Immature Granulocyte % (Auto) 0.3 % 05/31/25 Neutrophils # (Auto) 7.27 K/uL (1.40-6.50) H 05/31/25 Lymphocytes # (Auto) 1.71 K/uL (1.20-3.40) 05/31/25 Monocytes # (Auto) 0.75 K/uL (0.11-0.59) H 05/31/25 Eosinophils # (Auto) 0.02 K/uL (0.00-0.50) 05/31/25 Basophils # (Auto) 0.02 K/uL (0.00-0.20) 05/31/25 Immature Granulocyte # (Auto) 0.03 K/uL (0.01-0.20) 5 Na 136 mmol/L (136-145) 05/31/25 K 4.1 mmol/L (3.5-5.1) 05/31/25 Cl 105 mmol/L (98-107) 05/31/25 CO2 24 mmol/L (21-32) 05/31/25 Anion Gap 7 (3-11) 05/31/25 BUN 20 mg/dl (6-23) 05/31/25 Creatinine 0.94 mg/dl (0.6-1.4) 05/31/25 BUN/Creatinine Ratio 21.3 (10-20) H 05/31/25 Glu 127 mg/dl (70-99(Fasting)) H 05/31/25 Ca 8.1 mg/dl (8.6-10.3) L 05/31/25 Calcium Level 8.1 mg/dl (8.6-10.3) L 05/31/25 04:37 I & O Totals 24 Hours 05/30/25 05/31/25 06/01/25 06:59 06:59 06:59 Intake Total 4546.973 / 4546.973 0 / 0 Output Total 2225 / 2225 Balance 2321.973 / 2321.973 0 / 0 Cumulative 01/18/25 10:15 thru 05/31/25 07:00 Intake Total 4546.973 Output Total 2225 Balance 2321.973 RT Ventilator Mngmt (Last Documented) Ventilator Ordered Settings Respiratory Rate 14 05/31/25 06:12 Ventilator - PT Measurements Respiratory Rate 14 Coding Level of Care Code 85511 SUB INP/OBS CARE 2/35MIN Diagnoses Iliac artery occlusion, left I74.5 PVD (peripheral vascular disease) I73.9 CAD (coronary artery disease) I25.10 Sleep apnea G47.30
[2025-05-31] MEDS: ASPIRIN 81 MG ECTAB PO SCH (08:33)
[2025-05-31] MEDS: TAMSULOSIN HCL 0.4 MG CAP PO SCH (08:33)
[2025-05-31] MEDS: CLOPIDOGREL BISULFATE 75 MG TAB PO SCH (08:33)
[2025-05-31] MEDS: LOSARTAN POTASSIUM 25 MG TAB PO SCH (08:33)
[2025-05-31] MEDS ORDERED: NON-FORMULARY MEDICATION (Coenzyme Q10 [Co Q-10] 100 mg Capsule) PO SCH (09:00)
[2025-05-31] MEDS: ONDANSETRON INJ 2 MG/ML 2 ML VIAL IV PRN (09:09)
--- NOTE | 2025-05-31 12:34 | Surgery Progress Note ---
Date of Service May 31, 2025 Assessment & Plan (1) Iliac artery occlusion, left: Plan: Patient post op day 1 from fem fem bypass Doing well Will transfer to floor Increase activity May be ready for d\c tomorrow (2) Acute blood loss as cause of postoperative anemia: Plan: Patient anemic from blood loss during surgery. He is asymptomatic. Will follow serial hgb. Admission and Anticipated Discharge Date Admission Date: May 30, 2025 Subjective Patient without complaints. Denies foot pain. Does complain of groin incisional pain. Physical Exam Constitutional: WD/WN, vitals as above Respiratory: normal respiratory effort; no respiratory distress Cardiovascular: Rate/Rhythm: regular rate and regular rhythm Extremities: normal capillary refill excellent pedal dopplers Skin: + incision (prevena dressings in place) Neurologic: CN's II-XI intact bilaterally and moves all extremities Psychiatric: A+Ox3, euthymic affect Results & Data Vital Signs (Past 12 Hours) Vital Signs Temp Pulse Resp BP Pulse Ox Pulse Ox O2 Del Method 05/31/25 09:31 Room Air 05/31/25 09:21 36.9 C 05/31/25 09:12 66 16 92 05/31/25 09:01 164/90 H 05/31/25 08:54 68 20 92 05/31/25 08:27 72 17 94 05/31/25 08:01 140/77 05/31/25 07:39 79 15 94 05/31/25 07:38 Room Air 05/31/25 07:37 93 05/31/25 07:18 76 05/31/25 07:00 112/68 05/31/25 07:00 73 16 93 05/31/25 06:12 76 14 93 Room Air 05/31/25 06:00 120/67 05/31/25 05:51 73 15 93 Room Air 05/31/25 05:39 76 14 91 Room Air 05/31/25 05:00 115/72 05/31/25 04:39 73 15 92 Room Air 05/31/25 04:00 114/89 05/31/25 04:00 72 20 93 CPAP 05/31/25 04:00 73 116/58 L 05/31/25 03:51 72 20 94 CPAP 05/31/25 03:33 73 19 94 CPAP 05/31/25 03:15 71 16 93 CPAP 05/31/25 03:00 66 24 91 CPAP 05/31/25 03:00 121/64 05/31/25 02:54 71 19 91 CPAP 05/31/25 02:00 96/74 L 05/31/25 01:48 71 17 92 CPAP 05/31/25 01:00 114/83 05/31/25 00:57 74 19 91 CPAP 05/31/25 00:45 73 18 94 CPAP 05/31/25 00:33 74 15 90 CPAP O2 Del Method 05/31/25 09:31 05/31/25 09:21 05/31/25 09:12 05/31/25 09:01 05/31/25 08:54 05/31/25 08:27 05/31/25 08:01 05/31/25 07:39 05/31/25 07:38 05/31/25 07:37 Room Air 05/31/25 07:18 05/31/25 07:00 05/31/25 07:00 05/31/25 06:12 05/31/25 06:00 05/31/25 05:51 05/31/25 05:39 05/31/25 05:00 05/31/25 04:39 05/31/25 04:00 05/31/25 04:00 05/31/25 04:00 05/31/25 03:51 05/31/25 03:33 05/31/25 03:15 05/31/25 03:00 05/31/25 03:00 05/31/25 02:54 05/31/25 02:00 05/31/25 01:48 05/31/25 01:00 05/31/25 00:57 05/31/25 00:45 05/31/25 00:33
--- NOTE | 2025-06-01 09:15 | Surgery Progress Note ---
Date of Service June 01, 2025 Assessment & Plan (1) Iliac artery occlusion, left: Plan: Patient post op day 2 from fem fem bypass, doing well post op. Pain controlled with percocet. Ambulating with walker. OK for d/c home today. (2) Acute blood loss as cause of postoperative anemia: Plan: Patient with mild drop in hgb since compared to preop. VSS, no indications for transfusion. OK for d/c on iron. Admission and Anticipated Discharge Date Admission Date: May 30, 2025 Subjective 65 yo m POD #2 after R to L fem fem BPG and R iliac stenting. Patient without complaints. Denies foot pain. Does complain of groin incisional pain, but is ambulating in hallway with walker indepdently. Review of Systems Review of Systems: All systems reviewed & are unremarkable except as noted in HPI & below Physical Exam Constitutional: WD/WN, vitals as above Respiratory: normal respiratory effort; no respiratory distress Cardiovascular: Rate/Rhythm: regular rate and regular rhythm Extremities: normal capillary refill Skin: + incision (prevena dressings in place) Neurologic: CN's II-XI intact bilaterally and moves all extremities Psychiatric: A+Ox3, euthymic affect Results & Data Vital Signs (Past 12 Hours) Vital Signs Temp Pulse Resp BP Pulse Ox O2 Del Method 06/01/25 07:09 37.0 C 69 16 111/71 94 Room Air 05/31/25 23:18 36.9 C 77 16 128/80 93 Room Air
--- NOTE | 2025-06-01 09:16 | Discharge Summary ---
Date of Service June 01, 2025 Admission HPI Per Admitting Provider Mr. Blackwood is a middle-age male presents to Dr. Ruff's vascular surgery clinic today for a follow-up appointment after undergoing an aortogram and left iliac angiogram. Unfortunately his left iliac lesion was unable to be crossed with a wire and was not amenable to intervention. He continues with left buttock and thigh claudication at about 20 to 30 feet. He denies any new rest pain, discoloration of the foot, or ulcers. He would like to remain active, and feels that this greatly inhibits his ability to do so. He denies any other new concerns. Admission Exam Per Admitting Provider Constitutional: General Patient is an obese but healthy-appearing well-nourished developed middle-aged male in no distress. He is alert and oriented with any focal deficits. His heart is regular, lungs are decreased throughout but clear. Femoral puncture is well-healed. Left femoral pulse is nonpalpable. Toes demonstrate brisk capillary refill and no sign of distal ischemia Principal Diagnosis 1. s/p R to L PTFE fem fem BPG and R iliac stenting 2. AIOD Discharge Exam Constitutional WD/WN, vitals as above Respiratory normal respiratory effort; no respiratory distress Cardiovascular Rate/Rhythm: regular rate and regular rhythm Extremities: normal capillary refill Skin + incision (prevena dressings in place) Neurologic CN's II-XI intact bilaterally and moves all extremities Psychiatric A+Ox3, euthymic affect Discharge Data Allergies Allergy/AdvReac Type Severity Reaction Status Date / Time No Known Allergies Allergy Verified 05/30/25 06:56 Procedures Performed Operation Date: 05/30/25 08:00 Actual Procedures p Percutaneous Transluminal Angioplasty Stent, Right Common Iliac Artertery; Cross Femoral Bypass Right to Left - Michelet Ruff MD Ordered Studies 05/30/25 07:37 EV angio LE BI Routine Hospital Course (1) Iliac artery occlusion, left: Patient post op day 2 from fem fem bypass, doing well post op. Pain controlled with percocet. Ambulating with walker. OK for d/c home today. (2) Acute blood loss as cause of postoperative anemia: Patient with mild drop in hgb since compared to preop. VSS, no indications for transfusion. OK for d/c on iron. Total Time Total Time Spent Total Time Spent (In Minutes): 0 Discharge Plan Discharge Items Patient Disposition: Home - Self-Care Reason For Visit: Aortioilliac Occlusive Disease Discharge Diagnosis: 1. s/p R to L PTFE fem fem bypass and R iliac artery stent 2. AIOD Activity: Per Instructions section Lifting: No more than 5 pounds Lifting Comment: for 6 weeks Non-emergency contact: Primary Care Provider and Surgeon Call non-emergency contact if: you have any medication questions, your symptoms worsen, your pain is not controlled, your pain is concerning for you, you have a fever, your wound has increased redness and your wound has increased drainage Follow-up/Referrals: Michelet Ruff MD [Physician] - (Follow up with Dr Ruff or Leighann Mcconnell PA-C, in 2 weeks for staple removal) Nina Renteria PA-C [Primary Care Provider] - (Follow up with your PCP within 2 weeks) Diet: Heart Healthy Addtl Attending Provider Instructions: ACTIVITY RECOMMENDATIONS: 1. No lifting more than 5 lbs for 6 weeks. 2. Both groins covered with prevena incisional wound vacs. These can be removed and disposed of in garbage once the batteries , usually around 7-10 days. Call office if you are unsure or have concerns. 3. May shower after incisional vacs are removed. NO soaking tub baths, swimming or hot tubs for 6 weeks. SPECIAL CARE INSTRUCTIONS: Call your doctor if: * Temperature above 101 degrees * Pain not relieved by pain medicine ordered * There is increased drainage or redness from any incision * You have any unanswered questions or concerns. Pending Studies at Discharge: No Stand-Alone Forms: [facility], Smoking Cessation Medications and DC Order Prescriptions: New oxycodone-acetaminophen [Percocet] 5-325 mg Tablet 1 - 2 tab PO Q6H PRN (Reason: pain) Qty: 30 0RF docusate sodium [Colace] 100 mg capsule 100 mg PO BID Qty: 60 0RF ferrous sulfate [Iron (ferrous sulfate)] 325 mg (65 mg iron) tablet 325 mg PO BID Qty: 60 0RF Continued tamsulosin 0.4 mg Capsule 0.4 mg PO QAM losartan 25 mg Tablet 25 mg PO QAM coenzyme Q10 [Co Q-10] 100 mg Capsule 100 mg PO DAILY rosuvastatin 40 mg Tablet 40 mg PO HS clopidogrel 75 mg Tablet 75 mg PO QAM aspirin 81 mg Capsule 81 mg PO QAM Discharge Orders: Discharge Order (Routine); Ordered 06/01/25 Ordered By: Leighann Mcconnell Admission Data Admit Date/Time: 05/30/25 07:35 Attending Provider: Michelet Ruff Admit Provider: Michelet Ruff Primary Care Provider: Nina Renteria
[2025-06-01] MEDS: DOCUSATE SODIUM 100 MG CAP PO ONE (09:51)
[2025-06-01 15:05] VITALS: RESP 16; TEMP 98.1; O2SAT 93
[2025-06-01 15:54] VITALS: BP 120/66; PULSE 74
== END 2025-06-01 17:52 | disposition home or self-care (01) | DRG 253 ==
LOC: ASU 06:35 → 1E 07:35 → 3N 05-31 17:44